=== PATIENT | female | born 1945 | race Caucasian/White ===

== ENCOUNTER 2023-04-08 18:11 | Inpatient (IN) | payer MEDICARE, OTHER ==
--- NOTE | 2023-04-08 19:01 | ED ---
General Adult HPI - General Chief complaint: Altered Mental Status Stated complaint: sob Time Seen by Provider: 04/08/23 18:18 Source: EMS Mode of arrival: EMS Limitations: altered mental status - History of Present Illness Initial comments: This patient is a 77-year-old woman transferred here to have evaluation for suspected aspiration. The patient was reportedly found coughing and there was 3 scattered about the patient. They were concerned she may have aspirated or vomited which she had been eating. The patient also had been coughing and pulse oximetry readings down to the 70s were obtained. The patient is not able to give any history here due to dementia/delirium. She did complain that the stethoscope felt cold. She was not answering any other questions. -: unknown - Related Data Home Medications Medication Instructions Recorded Confirmed Acetaminophen Tab [Tylenol] 1,000 mg PO Q4H PRN 04/08/23 04/08/23 Atorvastatin [Lipitor] 10 mg PO HS 04/08/23 04/08/23 Cholecalciferol [Vitamin D3 (25 50 mcg PO DAILY 04/08/23 04/08/23 Mcg = 1000 Iu)] Escitalopram [Lexapro] 20 mg PO DAILY 04/08/23 04/08/23 Healthshake 1 dose PO BID 04/08/23 04/08/23 Insulin Glargine [Lantus Vial] 8 unit SQ HS 04/08/23 04/08/23 Ipratropium-Albuterol Nebulize 3 ml INHALATION RT-Q6H PRN 04/08/23 04/08/23 [Duoneb 0.5 mg-3 mg/3 ml Soln] Multivitamins, Thera [Multivitamin 1 tab PO DAILY 04/08/23 04/08/23 (formulary)] Repaglinide [Prandin] 0.5 mg PO AC-SUPPER 04/08/23 04/08/23 Sennosides [Senokot] 17.2 mg PO Q12H PRN 04/08/23 04/08/23 busPIRone HCl [Buspar] 20 mg PO TID@0800,1200,1800 04/08/23 04/08/23 metFORMIN HCL [Glucophage] 1,000 mg PO HS 04/08/23 04/08/23 metFORMIN HCL [Glucophage] 500 mg PO DAILY 04/08/23 04/08/23 polyethylene glycoL 3350 [Miralax] 17 gm PO DAILY PRN 04/08/23 04/08/23 Previous Rx's Medication Instructions Recorded ALPRAZolam [Xanax] 0.5 mg PO BID@0800,2200 #6 tab 04/13/23 Midodrine [ProAmatine] 10 mg PO AC-TID #30 tab 04/13/23 Allergies Allergy/AdvReac Type Severity Reaction Status Date / Time No Known Allergies Allergy Unverified 04/08/23 19:19 Review of Systems ROS Statement: Those systems with pertinent positive or pertinent negative responses have been documented in the HPI. ROS Other: All systems not noted in ROS Statement are negative. Constitutional: Denies: fever Respiratory: Reports: as per HPI, cough, dyspnea Gastrointestinal: Reports: as per HPI Past Medical History Past Medical History: Dementia, Diabetes Mellitus History of Any Multi-Drug Resistant Organisms: None Reported Past Surgical History: No Surgical Hx Reported Past Psychological History: No Psychological Hx Reported Past Alcohol Use History: None Reported Past Drug Use History: None Reported - Past Family History Father History Unknown: Yes Family Medical History: Unable to Obtain General Exam Limitations: altered mental status General appearance: alert, in no apparent distress Head exam: Present: atraumatic, normocephalic Eye exam: Present: normal appearance. Absent: scleral icterus, conjunctival injection Respiratory exam: Present: rales (Bases bilaterally), rhonchi. Absent: respiratory distress, wheezes, accessory muscle use, decreased breath sounds Cardiovascular Exam: Present: regular rate, normal rhythm, normal heart sounds. Absent: systolic murmur, diastolic murmur, rubs, gallop GI/Abdominal exam: Present: soft. Absent: distended, tenderness, guarding, rebound, rigid, mass Extremities exam: Present: normal inspection, normal capillary refill. Absent: pedal edema, calf tenderness Back exam: Present: normal inspection. Absent: CVA tenderness (R), CVA tenderness (L) Neurological exam: Present: alert Skin exam: Present: warm, dry, intact, normal color. Absent: rash Course Vital Signs 04/08/23 04/08/23 04/08/23 18:14 19:19 22:40 Temperature 97.6 F 97.4 F L Pulse Rate 107 H 102 H 101 H Respiratory 20 20 20 Rate Blood Pressure 130/76 130/83 124/79 O2 Sat by Pulse 98 100 97 Oximetry 04/09/23 03:26 Temperature Pulse Rate 96 Respiratory 16 Rate Blood Pressure 117/80 O2 Sat by Pulse 95 Oximetry EKG Findings - EKG Results: EKG: interpreted by ERMD, sinus rhythm, normal axis EKG shows: tachycardia (106 bpm) - Blocks, [place], Hypertrophy, ST Abn: Repolarization changes or abnormalities: ST or T wave suggestive of ischemia Medical Decision Making - Medical Decision Making This patient is 77-year-old woman transferred here with concerns about dyspnea/low pulse oximetry readings and possibility of aspiration. Workup reveals what appears to be exacerbation of CHF. Patient will be admitted for further evaluation and treatment. Patient also appears to have some acute kidney injury based on the lab results. The patient had chest x-ray which I interpreted as showing changes consistent with CHF. No acute infiltrate or pneumothorax. Was pt. sent in by a medical professional or institution (, PA, CHIEF LENDING OFFICER, urgent care, hospital, or senior living...) When possible be specific @ -Patient is sent in from senior living Did you speak to anyone other than the patient for history (EMS, parent, family, police, friend...)? What history was obtained from this source @ -[No] Did you review nursing and triage notes (agree or disagree)? Why? @ -[I reviewed and agree with nursing and triage notes] Were old charts reviewed (outside hosp., previous admission, EMS record, old EKG, old radiological studies, urgent care reports/EKG's, senior living records)? Report findings @ -[Old charts were reviewed] Differential Diagnosis (chest pain, altered mental status, abdominal pain women, abdominal pain men, vaginal bleeding, weakness, fever, dyspnea, syncope, headache, dizziness, GI bleed, back pain, seizure, CVA, palpatations, mental health, musculoskeletal)? @ -[Differential Dyspnea: Coronary syndrome, arrhythmia, tamponade, asthma, COPD, pulmonary embolism, pneumonia, pneumothorax, pulmonary effusion, anaphylaxis, diabetic ketoacidosis, flailed chest, pulmonary contusion, diaphragmatic rupture, anemia, neuromuscular, this is not meant to be an all-inclusive list. EKG interpreted by me (3pts min.). @ -[As above] X-rays interpreted by me (1pt min.). @ -[As above CT interpreted by me (1pt min.). @ -[None done] U/S interpreted by me (1pt. min.). @ -[None done] What testing was considered but not performed or refused? (CT, X-rays, U/S, labs)? Why? @ -[None] What meds were considered but not given or refused? Why? @ -[None] Did you discuss the management of the patient with other professionals (professionals i.e. DrJanette, PA, CHIEF LENDING OFFICER, lab, RT, psych nurse, healthcare social worker, water quality analyst, teacher, deputy probation officer, classification case manager)? Give summary @ -[Mark discussed with admitting physician Was smoking cessation discussed for >3mins.? @ -[No] Was critical care preformed (if so, how long)? @ -[No] Were there social determinants of health that impacted care today? How? (Homelessness, low income, unemployed, alcoholism, drug addiction, tra nsportation, low edu. Level, literacy, decrease access to med. care, intermediate, rehab)? @ -[No] Was there de-escalation of care discussed even if they declined (Discuss DNR or withdrawal of care, Hospice)? DNR status @ -[No] What co-morbidities impacted this encounter? (DM, HTN, Smoking, COPD, CAD, Cancer, CVA, ARF, Chemo, Hep., AIDS, mental health diagnosis, sleep apnea, morbid obesity)? @ -[None] Was patient admitted / discharged? Hospital course, mention meds given and route, prescriptions, significant lab abnormalities, going to OR and other pertinent info. @ -[Patient will be admitted for diuretic therapy as well as for cardiology consultation and nephrology consultation. Undiagnosed new problem with uncertain prognosis? @ -[No] Drug Therapy requiring intensive monitoring for toxicity (Heparin, Nitro, Insulin, Cardizem)? @ -[No] Were any procedures done? @ -[No] Diagnosis/symptom? @ -[Acute exacerbation of congestive heart failure. Acute kidney injury Acute, or Chronic, or Acute on Chronic? @ -[default] Uncomplicated (without systemic symptoms) or Complicated (systemic symptoms)? @ -[Uncomplicated Side effects of treatment? @ -[No] Exacerbation, Progression, or Severe Exacerbation? @ -[No] Poses a threat to life or bodily function? How? (Chest pain, [place], GA, pneumonia, PE, COPD, DKA, ARF, appy, cholecystitis, CVA, Diverticulitis, Homicidal, Suicidal, threat to staff... and all critical care pts) @ -[Yes, untreated congestive heart failure may progress to pulmonary edema/respiratory failure/ - Lab Data Result diagrams: 04/13/23 16:47 04/14/23 07:49 Lab Results 04/08/23 04/08/23 04/08/23 Range/Units 19:37 19:37 19:37 WBC 16.7 H (3.8-10.6) k/uL RBC 4.53 (3.80-5.40) m/uL Hgb 13.4 (11.4-16.0) gm/dL Hct 42.7 (34.0-46.0) % MCV 94.3 (80.0-100.0) fL MCH 29.6 (25.0-35.0) pg MCHC 31.4 (31.0-37.0) g/dL RDW 13.5 (11.5-15.5) % Plt Count 422 (150-450) k/uL MPV 8.9 Neutrophils % 85 % Lymphocytes % 7 % Monocytes % 7 % Eosinophils % 0 % Basophils % 0 % Neutrophils # 14.1 H (1.3-7.7) k/uL Lymphocytes # 1.2 (1.0-4.8) k/uL Monocytes # 1.1 H (0-1.0) k/uL Eosinophils # 0.0 (0-0.7) k/uL Basophils # 0.0 (0-0.2) k/uL PT 11.2 (9.0-12.0) sec INR 1.1 (<1.2) APTT 22.8 (22.0-30.0) sec Sodium 142 (137-145) mmol/L Potassium 5.7 H (3.5-5.1) mmol/L Chloride 113 H (98-107) mmol/L Carbon Dioxide 16 L (22-30) mmol/L Anion Gap 13 mmol/L BUN 83 H (7-17) mg/dL Creatinine 2.62 H (0.52-1.04) mg/dL Est GFR (CKD-EPI)AfAm 20 (>60 ml/min/1.73 sqM) Est GFR (CKD-EPI)NonAf 17 (>60 ml/min/1.73 sqM) Glucose 295 H (74-99) mg/dL Lactic Ac Sepsis Rflx Plasma Lactic Acid Nick (0.7-2.0) mmol/L Calcium 9.1 (8.4-10.2) mg/dL Total Bilirubin 1.1 (0.2-1.3) mg/dL AST 23 (14-36) U/L ALT 15 (4-34) U/L Alkaline Phosphatase 103 (38-126) U/L Troponin I (0.000-0.034) ng/mL NT-Pro-B Natriuret Pep pg/mL Total Protein 6.4 (6.3-8.2) g/dL Albumin 3.5 (3.5-5.0) g/dL 04/08/23 04/08/23 04/08/23 Range/Units 19:37 19:37 19:37 WBC (3.8-10.6) k/uL RBC (3.80-5.40) m/uL Hgb (11.4-16.0) gm/dL Hct (34.0-46.0) % MCV (80.0-100.0) fL MCH (25.0-35.0) pg MCHC (31.0-37.0) g/dL RDW (11.5-15.5) % Plt Count (150-450) k/uL MPV Neutrophils % % Lymphocytes % % Monocytes % % Eosinophils % % Basophils % % Neutrophils # (1.3-7.7) k/uL Lymphocytes # (1.0-4.8) k/uL Monocytes # (0-1.0) k/uL Eosinophils # (0-0.7) k/uL Basophils # (0-0.2) k/uL PT (9.0-12.0) sec INR (<1.2) APTT (22.0-30.0) sec Sodium (137-145) mmol/L Potassium (3.5-5.1) mmol/L Chloride (98-107) mmol/L Carbon Dioxide (22-30) mmol/L Anion Gap mmol/L BUN (7-17) mg/dL Creatinine (0.52-1.04) mg/dL Est GFR (CKD-EPI)AfAm (>60 ml/min/1.73 sqM) Est GFR (CKD-EPI)NonAf (>60 ml/min/1.73 sqM) Glucose (74-99) mg/dL Lactic Ac Sepsis Rflx Plasma Lactic Acid Nick 2.5 H* (0.7-2.0) mmol/L Calcium (8.4-10.2) mg/dL Total Bilirubin (0.2-1.3) mg/dL AST (14-36) U/L ALT (4-34) U/L Alkaline Phosphatase (38-126) U/L Troponin I <0.012 (0.000-0.034) ng/mL NT-Pro-B Natriuret Pep 2180 pg/mL Total Protein (6.3-8.2) g/dL Albumin (3.5-5.0) g/dL 04/08/23 Range/Units 22:27 WBC (3.8-10.6) k/uL RBC (3.80-5.40) m/uL Hgb (11.4-16.0) gm/dL Hct (34.0-46.0) % MCV (80.0-100.0) fL MCH (25.0-35.0) pg MCHC (31.0-37.0) g/dL RDW (11.5-15.5) % Plt Count (150-450) k/uL MPV Neutrophils % % Lymphocytes % % Monocytes % % Eosinophils % % Basophils % % Neutrophils # (1.3-7.7) k/uL Lymphocytes # (1.0-4.8) k/uL Monocytes # (0-1.0) k/uL Eosinophils # (0-0.7) k/uL Basophils # (0-0.2) k/uL PT (9.0-12.0) sec INR (<1.2) APTT (22.0-30.0) sec Sodium (137-145) mmol/L Potassium (3.5-5.1) mmol/L Chloride (98-107) mmol/L Carbon Dioxide (22-30) mmol/L Anion Gap mmol/L BUN (7-17) mg/dL Creatinine (0.52-1.04) mg/dL Est GFR (CKD-EPI)AfAm (>60 ml/min/1.73 sqM) Est GFR (CKD-EPI)NonAf (>60 ml/min/1.73 sqM) Glucose (74-99) mg/dL Lactic Ac Sepsis Rflx Y Plasma Lactic Acid Nick (0.7-2.0) mmol/L Calcium (8.4-10.2) mg/dL Total Bilirubin (0.2-1.3) mg/dL AST (14-36) U/L ALT (4-34) U/L Alkaline Phosphatase (38-126) U/L Troponin I (0.000-0.034) ng/mL NT-Pro-B Natriuret Pep pg/mL Total Protein (6.3-8.2) g/dL Albumin (3.5-5.0) g/dL Disposition Clinical Impression: CHF exacerbation, Acute kidney injury Disposition: ADMITTED IP TO THIS HOSP Condition: Stable Is patient prescribed a controlled substance at d/c from ED?: No
--- NOTE | 2023-04-08 19:54 | XR ---
EXAMINATION TYPE: XR chest 2V DATE OF EXAM: 04/08/2023 7:49 PM COMPARISON: No relevant priors. TECHNIQUE: XR chest 2V . CLINICAL INDICATION:Female, 77 years old with history of difficulty breathing; Patient head positioning obscures visualization of the medial apices bilaterally. FINDINGS: Lungs/Pleura: Low lung volumes secondary to shallow inspiration. No focal airspace consolidation. Min imal subsegmental atelectatic changes of the lung bases bilaterally. Pulmonary vascularity: Mild pulmonary vascular congestion. Heart/mediastinum: Cardiomediastinal silhouette is enlarged. Musculoskeletal: Fixation hardware in the right humerus. Multilevel discogenic and degenerative bryan es of the visualized thoracic spine. IMPRESSION: Cardiomegaly and mild pulmonary vascular congestion. Correlate with BNP for congestive heart failure.
[2023-04-08 20:06] LABS: INR 1.1 (<1.2); Partial Thromboplastin Time 22.8 sec (22.0-30.0); Prothrombin Time 11.2 sec (9.0-12.0)
[2023-04-08 20:08] LABS: Basophils % (A) 0 %; Eosinophils % (A) 0 %; HCT 42.7 % (34.0-46.0); HGB 13.4 gm/dL (11.4-16.0); Lymphocytes # (A) 1.2 k/uL (1.0-4.8); Lymphocytes % (A) 7 %; MCH 29.6 pg (25.0-35.0); MCHC 31.4 g/dL (31.0-37.0); MCV 94.3 fL (80.0-100.0); Mean Platelet Volume 8.9; Monocytes # (A) 1.1 k/uL (0-1.0); Monocytes % (A) 7 %; Neutrophils # (A) 14.1 k/uL (1.3-7.7); Neutrophils % (A) 85 %; Platelet Count 422 k/uL (150-450); RBC 4.53 m/uL (3.80-5.40); RDW 13.5 % (11.5-15.5); WBC 16.7 k/uL (3.8-10.6)
[2023-04-08 20:15] LABS: ALT 15 U/L (4-34); AST 23 U/L (14-36); African American GFR (CKD) 20 (>60 ml/min/1.73 sqM); Albumin 3.5 g/dL (3.5-5.0); Alkaline Phosphatase 103 U/L (38-126); Anion Gap 13 mmol/L; Blood Urea Nitrogen 83 mg/dL (7-17); Calcium 9.1 mg/dL (8.4-10.2); Carbon Dioxide 16 mmol/L (22-30); Chloride 113 mmol/L (98-107); Glucose 295 mg/dL (74-99); Non-African American GFR(CKD) 17 (>60 ml/min/1.73 sqM); Potassium 5.7 mmol/L (3.5-5.1); Sodium 142 mmol/L (137-145); Total Bilirubin 1.1 mg/dL (0.2-1.3); Total Protein 6.4 g/dL (6.3-8.2)
[2023-04-08] MEDS ORDERED: FUROSEMIDE 10 MG/ML 2 ML VIAL IV STA (21:22)
[2023-04-09] MEDS ORDERED: FUROSEMIDE 10 MG/ML 4 ML VIAL IV SCH (02:30)
[2023-04-09] MEDS ORDERED: IPRATROPIUM-ALBUTEROL 3 ML NEB INHALATION PRN (02:30)
[2023-04-09] MEDS ORDERED: PROMETHAZINE 25 MG TAB PO STA (06:00)
[2023-04-09 06:05] LABS: Glucose,Whole Blood 254 mg/dL (70-110)
[2023-04-09] MEDS ORDERED: lisinopriL 10 MG TAB PO SCH (09:00)
[2023-04-09] MEDS ORDERED: metFORMIN 500 MG TAB PO SCH ×2 (09:00→21:00)
[2023-04-09] MEDS ORDERED: polyethylene glycoL 3350 17 GM POWD.PACK PO PRN (09:43)
[2023-04-09] MEDS ORDERED: SENNOSIDES 8.6 MG TAB PO PRN (09:43)
[2023-04-09 11:23] LABS: African American GFR (CKD) 20 (>60 ml/min/1.73 sqM); Anion Gap 14 mmol/L; Blood Urea Nitrogen 78 mg/dL (7-17); Calcium 9.4 mg/dL (8.4-10.2); Carbon Dioxide 19 mmol/L (22-30); Chloride 114 mmol/L (98-107); Glucose 240 mg/dL (74-99); Non-African American GFR(CKD) 18 (>60 ml/min/1.73 sqM); Potassium 4.8 mmol/L (3.5-5.1); Sodium 147 mmol/L (137-145)
--- NOTE | 2023-04-09 11:37 | US ---
EXAMINATION TYPE: US kidneys/renal and bladder DATE OF EXAM: 04/09/2023 COMPARISON: NONE CLINICAL INDICATION: Female, 77 years old with history of Bertrand; BERTRAND EXAM MEASUREMENTS: Right Kidney: 8.4 x 4.6 x 4.7 cm Left Kidney: 9.3 x 4.7 x 4.7 cm Right Kidney: Small in size, no evidence of hydro Left Kidney: No evidence of hydro Bladder: Cath in place Cortical medullary differentiation is maintained bilaterally. There is no evidence for hydronephrosis at this point in time. No nephrolithiasis is seen. No lakesha s are identified. Villa catheter in place. IMPRESSION: No evidence of obstructive uropathy.
[2023-04-09] MEDS: ALPRAZolam 0.5 MG TAB PO SCH ×2 (11:53→20:44)
[2023-04-09] MEDS: busPIRone HCl 10 MG TAB PO SCH ×3 (11:54→20:44)
[2023-04-09] MEDS: ESCITALOPRAM 20 MG TAB PO SCH (11:55)
[2023-04-09] MEDS: CHOLECALCIFEROL 25 MCG (1000 IU) TABLET PO SCH (11:55)
[2023-04-09 11:57] LABS: Glucose,Whole Blood 208 mg/dL (70-110)
--- NOTE | 2023-04-09 12:06 | P.NPCON ---
History of Present Illness - Reason for Consult acute renal failure - History of Present Illness Patient is a 77-year-old female who is admitted to the hospital with mental status changes. Patient has underlying history of dementia and type 2 diabetes and hypertension. She is not able to provide any history Serum creatinine was 2.6 on admission and decreased to 2.5. Prior creatinine was 0.8 Blood pressure has been borderline low. Patient was maintained on SOTO inhibitor's. Potassium was elevated at 5.7. Patient has an external catheter with urine output documented at 300 mL. Chest x-ray shows mild pulmonary vascular congestion O2 sats at 100% on 3 L nasal cannula. Review of Systems As per HPI Past Medical History Past Medical History: Dementia, Diabetes Mellitus History of Any Multi-Drug Resistant Organisms: None Reported Past Surgical History: No Surgical Hx Reported Past Psychological History: No Psychological Hx Reported Past Alcohol Use History: None Reported Past Drug Use History: None Reported Medications and Allergies Home Medications Medication Instructions Recorded Confirmed Type ALPRAZolam [Xanax] 0.5 mg PO BID@0800,2200 04/08/23 04/08/23 History Acetaminophen Tab [Tylenol Tab] 1,000 mg PO Q4H PRN 04/08/23 04/08/23 History Amoxic-Pot Clav 500-125 mg 1 tab PO TID@0700,1100,1800 04/08/23 04/08/23 History [Augmentin 500-125 mg] Atorvastatin [Lipitor] 10 mg PO HS 04/08/23 04/08/23 History Benazepril [Lotensin] 10 mg PO DAILY@0800 04/08/23 04/08/23 History Cholecalciferol [Vitamin D3 (25 50 mcg PO DAILY 04/08/23 04/08/23 History Mcg = 1000 Iu)] Escitalopram [Lexapro] 20 mg PO DAILY 04/08/23 04/08/23 History Healthshake 1 dose PO BID 04/08/23 04/08/23 History Insulin Glargine [Lantus Vial] 8 unit SQ HS 04/08/23 04/08/23 History Ipratropium-Albuterol Nebulize 3 ml INHALATION RT-Q6H PRN 04/08/23 04/08/23 History [Duoneb 0.5 mg-3 mg/3 ml Soln] Multivitamins, Thera [Multivitamin 1 tab PO DAILY 04/08/23 04/08/23 History (formulary)] Repaglinide [Prandin] 0.5 mg PO AC-SUPPER 04/08/23 04/08/23 History Sennosides [Senokot] 17.2 mg PO Q12H PRN 04/08/23 04/08/23 History busPIRone HCl [Buspar] 20 mg PO TID@0800,1200,1800 04/08/23 04/08/23 History metFORMIN HCL [Glucophage] 1,000 mg PO HS 04/08/23 04/08/23 History metFORMIN HCL [Glucophage] 500 mg PO DAILY 04/08/23 04/08/23 History polyethylene glycoL 3350 [Miralax] 17 gm PO DAILY PRN 04/08/23 04/08/23 History Allergies Allergy/AdvReac Type Severity Reaction Status Date / Time No Known Allergies Allergy Unverified 04/08/23 19:19 Physical Exam Vitals: Vital Signs Temp Pulse Pulse Resp BP BP Pulse Ox 04/09/23 04:13 98.8 F 94 24 109/71 100 04/09/23 03:26 96 16 117/80 95 04/08/23 22:40 97.4 F L 101 H 20 124/79 97 04/08/23 19:19 102 H 20 130/83 100 04/08/23 18:14 97.6 F 107 H 20 130/76 98 Intake and Output 04/08/23 04/09/23 04/09/23 22:59 06:59 14:59 Output Total 300 Balance -300 Output: Urine 300 Other: Voiding Method External Catheter Weight 68.039 kg Patient is awake, comfortable, in no acute distress. She does not communicate much. Examination of the heart S1 and S2 Examination of the lungs bilateral breath sounds are heard Abdomen is soft nontender Examination lower extremity shows no significant edema TRANSACTIONAL ATTORNEY exam shows patient is moving all 4 extremities however she does not communicate much. Results - Lab Results Most recent lab results Calcium 9.4 mg/dL (8.4-10.2) 04/09/23 10:27 04/08/23 19:37 04/09/23 10:27 Assessment and Plan Assessment: 1. Acute kidney injury most likely ATN currently nonoliguric. Mostly hemodynamic ATN associated with borderline low blood pressures in the setting of use of SOTO inhibitor's. Possible component of cardiorenal syndrome. Ultrasound shows no evidence of hydronephrosis. UA is not available 2. Hypernatremia associated with free water deficit 3. Mental status changes with underlying history of dementia 4. Mild volume overload on initial admission status post IV Lasix Plan: DC lisinopril DC Glucophage Hold Lasix for now Repeat labs in a.m. Continue accurate I's and O's Avoid any other nephrotoxic agents Encourage increased oral intake Repeat labs today Thank you for the consultation. We will continue to follow the patient with you during her hospitalization.
--- NOTE | 2023-04-09 12:21 | P.CRDCN ---
History of Present Illness Consult date: 04/09/23 Consult reason: congestive heart failure History of present illness: History of present illness: This is a 77 year old female with past medical history of hypertension, hyperlipidemia, diabetes mellitus type 2, generalized anxiety disorder, depr ession, dementia. Patient was brought into the emergency center due to suspected aspiration as she was apparently found coughing with food scattered around her and pulse ox was in the 70s. No history is able to be obtained from the patient.. EKG sinus rhythm with ST elevation in inferior leads Chest x-ray: Cardiomegaly and mild pulmonary vascular congestion. Renal ultrasound revealed no evidence of obstructive uropathy. WBC 16.7, hemoglobin 13.4, platelet count 422. Sodium 147, potassium 4.8, chloride 114, CO2 19, BUN 78 creatinine 2.56. Lactic acid 2. 5 repeat 1.2. Calcium 9.4. Liver function tests normal. Troponin negative 3. ProBNP 2180 Home cardiac medications: Atorvastatin 10 mg at bedtime, benazepril 10 mg daily Review Of Systems: At the time of my evaluation: Constitutional: No fever, no chills. No weakness, fatigue or lethargy. EENT: No headache. No dizziness. Lungs: No shortness of breath, cough, no sputum production. No wheezing. Cardiovascular: No chest pain, no lower extremity edema. No palpitations. No paroxysmal nocturnal dyspnea. No orthopnea. No lightheadedness or dizziness. No syncopal episodes. Abdominal: No abdominal pain. No nausea, vomiting. No diarrhea. No constipation. No bloody or tarry stools. Genitourinary: No dysuria.. No urinary retention. Musculoskeletal: No myalgias. No muscle weakness, no frequent falls. No back pain. No neck pain. Integumentary: No wounds. No rash. No unusual bruising. Neurologic: No aphasia. No facial droop. No change in mentation. No head injury. No headache. Physical examination: Gen: This is a 77-year-old female. She is resting in bed and appears to be in no acute distress. VS: reviewed. 109/71, heart rate in the 90s, pulse ox 100% on 3 L nasal cannula, afebrile. HEENT: Head is atraumatic, normocephalic. Pupils equal, round. Sclerae is anicteric. NECK: Supple. No JVD. . LUNGS: Diminished. No intercostal retractions. HEART: Regular rate and rhythm. ABDOMEN: Soft No tenderness. EXTREMITIES: No pedal edema. No calf tenderness. NEUROLOGICAL: Patient is sleeping and opens eyes only. Assessment: Metabolic encephalopathy Pneumonia Hyperkalemia Acute kidney injury Lactic acidosis Hypernatremia Possible mild heart failure on presentation Hypertension Hyperlipidemia Diabetes mellitus type 2 Dementia Plan: Patient is status post 1 dose of IV Lasix 20 mg Continue atorvastatin, hold benazepril due to acute kidney injury Obtain 2-D echocardiogram and Doppler study to assess cardiac structure and function Further recommendations to follow based upon clinical course Thank you kindly for this consultation. Nurse practitioner note has been reviewed, I agree with documented findings and plan of care. Patient was seen and examined. Past Medical History Past Medical History: Dementia, Diabetes Mellitus History of Any Multi-Drug Resistant Organisms: None Reported Past Surgical History: No Surgical Hx Reported Past Psychological History: No Psychological Hx Reported Past Alcohol Use History: None Reported Past Drug Use History: None Reported Medications and Allergies Home Medications Medication Instructions Recorded Confirmed Type ALPRAZolam [Xanax] 0.5 mg PO BID@0800,2200 04/08/23 04/08/23 History Acetaminophen Tab [Tylenol Tab] 1,000 mg PO Q4H PRN 04/08/23 04/08/23 History Amoxic-Pot Clav 500-125 mg 1 tab PO TID@0700,1100,1800 04/08/23 04/08/23 History [Augmentin 500-125 mg] Atorvastatin [Lipitor] 10 mg PO HS 04/08/23 04/08/23 History Benazepril [Lotensin] 10 mg PO DAILY@0800 04/08/23 04/08/23 History Cholecalciferol [Vitamin D3 (25 50 mcg PO DAILY 04/08/23 04/08/23 History Mcg = 1000 Iu)] Escitalopram [Lexapro] 20 mg PO DAILY 04/08/23 04/08/23 History Healthshake 1 dose PO BID 04/08/23 04/08/23 History Insulin Glargine [Lantus Vial] 8 unit SQ HS 04/08/23 04/08/23 History Ipratropium-Albuterol Nebulize 3 ml INHALATION RT-Q6H PRN 04/08/23 04/08/23 History [Duoneb 0.5 mg-3 mg/3 ml Soln] Multivitamins, Thera [Multivitamin 1 tab PO DAILY 04/08/23 04/08/23 History (formulary)] Repaglinide [Prandin] 0.5 mg PO AC-SUPPER 04/08/23 04/08/23 History Sennosides [Senokot] 17.2 mg PO Q12H PRN 04/08/23 04/08/23 History busPIRone HCl [Buspar] 20 mg PO TID@0800,1200,1800 04/08/23 04/08/23 History metFORMIN HCL [Glucophage] 1,000 mg PO HS 04/08/23 04/08/23 History metFORMIN HCL [Glucophage] 500 mg PO DAILY 04/08/23 04/08/23 History polyethylene glycoL 3350 [Miralax] 17 gm PO DAILY PRN 04/08/23 04/08/23 History Allergies Allergy/AdvReac Type Severity Reaction Status Date / Time No Known Allergies Allergy Unverified 04/08/23 19:19 Physical Exam Vitals: Vital Signs Temp Pulse Pulse Resp BP BP Pulse Ox 04/09/23 04:13 98.8 F 94 24 109/71 100 04/09/23 03:26 96 16 117/80 95 04/08/23 22:40 97.4 F L 101 H 20 124/79 97 04/08/23 19:19 102 H 20 130/83 100 04/08/23 18:14 97.6 F 107 H 20 130/76 98 Intake and Output 04/08/23 04/09/23 04/09/23 22:59 06:59 14:59 Other: Voiding Method External Catheter Weight 68.039 kg Results 04/08/23 19:37 04/09/23 10:27 Cardiac Enzymes 04/08/23 04/08/23 04/09/23 Range/Units 19:37 19:37 04:04 AST 23 (14-36) U/L Troponin I <0.012 0.020 (0.000-0.034) ng/mL 04/09/23 Range/Units 05:47 AST (14-36) U/L Troponin I 0.020 (0.000-0.034) ng/mL Coagulation 04/08/23 Range/Units 19:37 PT 11.2 (9.0-12.0) sec APTT 22.8 (22.0-30.0) sec CBC 04/08/23 Range/Units 19:37 WBC 16.7 H (3.8-10.6) k/uL RBC 4.53 (3.80-5.40) m/uL Hgb 13.4 (11.4-16.0) gm/dL Hct 42.7 (34.0-46.0) % Plt Count 422 (150-450) k/uL Comprehensive Metabolic Panel 04/08/23 Range/Units 19:37 Sodium 142 (137-145) mmol/L Potassium 5.7 H (3.5-5.1) mmol/L Chloride 113 H (98-107) mmol/L Carbon Dioxide 16 L (22-30) mmol/L BUN 83 H (7-17) mg/dL Creatinine 2.62 H (0.52-1.04) mg/dL Glucose 295 H (74-99) mg/dL Calcium 9.1 (8.4-10.2) mg/dL AST 23 (14-36) U/L ALT 15 (4-34) U/L Alkaline Phosphatase 103 (38-126) U/L Total Protein 6.4 (6.3-8.2) g/dL Albumin 3.5 (3.5-5.0) g/dL Current Medications Generic Name Dose Route Start Last Admin Trade Name Freq PRN Reason Stop Dose Admin Albuterol/Ipratropium 3 ml 04/09/23 02:30 Ipratropium-Albuterol 3 Ml Neb INHALATION RT-Q6H PRN Shortness Of Breath Or Wheezing Alprazolam 0.5 mg 04/09/23 08:00 Alprazolam 0.5 Mg Tab PO BID@0800,2200 [facility] Atorvastatin Calcium 10 mg 04/09/23 21:00 Atorvastatin 10 Mg Tab PO HS [facility] Buspirone HCl 20 mg 04/09/23 09:00 Buspirone Hcl 10 Mg Tab PO TID [facility] Cholecalciferol 50 mcg 04/09/23 09:00 Cholecalciferol 25 Mcg (1000 Iu) Tablet PO DAILY [facility] Escitalopram Oxalate 20 mg 04/09/23 09:00 Escitalopram 20 Mg Tab PO DAILY [facility] Furosemide 40 mg 04/09/23 02:30 04/09/23 02:45 Furosemide 10 Mg/Ml 4 Ml Vial IV 40 mg Q12H [facility] Administration Insulin Detemir 8 unit 04/09/23 21:00 Insulin Detemir (Levemir) 100 Unit/Ml Syr SQ HS [facility] Lisinopril 10 mg 04/09/23 09:00 Lisinopril 10 Mg Tab PO DAILY [facility] Metformin HCl 1,000 mg 04/09/23 21:00 Metformin 500 Mg Tab PO HS [facility] Metformin HCl 500 mg 04/09/23 09:00 Metformin 500 Mg Tab PO DAILY [facility] Repaglinide 0.5 mg 04/09/23 17:30 Repaglinide 1 Mg Tab PO AC-SUPPER [facility] Sodium Chloride 10 ml 04/09/23 09:00 Sodium Chloride 0.9% Flush 10 Ml Syringe IV BID [facility] Intake and Output 04/08/23 04/09/23 04/09/23 22:59 06:59 14:59 Other: Voiding Method External Catheter Weight 68.039 kg 04/08/23 19:37 04/08/23 19:37
[2023-04-09] MEDS: AMPICILLIN-SULBACTAM 3 GM in SODIUM CHLORIDE 0.9% 100 ML IVPB SCH ×2 (12:38→20:53)
--- NOTE | 2023-04-09 14:54 | P.HPIM ---
History of Present Illness H&P Date: 04/09/23 History of present illness; patient is a 77-year-old lady with past medical history significant for dementia who presented to the hospital because of shortness of breath. There was concern that patient might aspirated. Patient was found coughing. There was no fever or chills at that time. Patient initial pulse ox was down in 70s. Because of his concerns for aspiration, patient was brought to the ER. Initial lab work done in the ER showed sodium 142, potassium 5.7, BUN 83, creatinine 2.62, troponin 0.012, WBC 16.7, hemoglobin 13.4, Chest x-ray done showed cardiomegaly and mild pulmonary venous congestion She was admitted to internal medicine service for further evaluation and treatment REVIEW OF SYSTEMS: Review of systems cannot be obtained because of patient's history of dementia PHYSICAL EXAMINATION: GENERAL: The patient is alert to self, not in any acute distress. Well developed, well nourished. HEENT: Pupils are round and equally reacting to light. EOMI. No scleral icterus. No conjunctival pallor. Normocephalic, atraumatic. No pharyngeal erythema. No thyromegaly. CARDIOVASCULAR: S1 and S2 present. No murmurs, rubs, or gallops. PULMONARY: Coarse breath sounds bilaterally, expiratory rhonchi audible ABDOMEN: Soft, nontender, nondistended, normoactive bowel sounds. No palpable organomegaly. MUSCULOSKELETAL: No joint swelling or deformity. EXTREMITIES: No cyanosis, clubbing, or pedal edema. NEUROLOGICAL: Gross neurological examination did not reveal any focal deficits. SKIN: No rashes. Assessment and plan Acute CHF Acute hypoxic respiratory failure Aspiration pneumonia Hyperkalemia Acute kidney injury Hypertension Insulin-dependent diabetes mellitus History of dementia Monitor vital signs Monitor CBC Telemetry monitoring Strict I's and O's and daily weights DC lisinopril DC Glucophage Hold Lasix for now Continue IV Unasyn Monitor blood sugar levels, continue sliding scale insulin, resume home regimen of Lantus Consult cardiology Consult nephrology Past Medical History Past Medical History: Dementia, Diabetes Mellitus History of Any Multi-Drug Resistant Organisms: None Reported Past Surgical History: No Surgical Hx Reported Past Psychological History: No Psychological Hx Reported Past Alcohol Use History: None Reported Past Drug Use History: None Reported Medications and Allergies Home Medications Medication Instructions Recorded Confirmed Type ALPRAZolam [Xanax] 0.5 mg PO BID@0800,2200 04/08/23 04/08/23 History Acetaminophen Tab [Tylenol Tab] 1,000 mg PO Q4H PRN 04/08/23 04/08/23 History Amoxic-Pot Clav 500-125 mg 1 tab PO TID@0700,1100,1800 04/08/23 04/08/23 History [Augmentin 500-125 mg] Atorvastatin [Lipitor] 10 mg PO HS 04/08/23 04/08/23 History Benazepril [Lotensin] 10 mg PO DAILY@0800 04/08/23 04/08/23 History Cholecalciferol [Vitamin D3 (25 50 mcg PO DAILY 04/08/23 04/08/23 History Mcg = 1000 Iu)] Escitalopram [Lexapro] 20 mg PO DAILY 04/08/23 04/08/23 History Healthshake 1 dose PO BID 04/08/23 04/08/23 History Insulin Glargine [Lantus Vial] 8 unit SQ 04/08/23 04/08/23 History Ipratropium-Albuterol Nebulize 3 ml INHALATION RT-Q6H PRN 04/08/23 04/08/23 History [Duoneb 0.5 mg-3 mg/3 ml Soln] Multivitamins, Thera [Multivitamin 1 tab PO DAILY 04/08/23 04/08/23 History (formulary)] Repaglinide [Prandin] 0.5 mg PO AC-SUPPER 04/08/23 04/08/23 History Sennosides [Senokot] 17.2 mg PO Q12H PRN 04/08/23 04/08/23 History busPIRone HCl [Buspar] 20 mg PO TID@0800,1200,1800 04/08/23 04/08/23 History metFORMIN HCL [Glucophage] 1,000 mg PO HS 04/08/23 04/08/23 History metFORMIN HCL [Glucophage] 500 mg PO DAILY 04/08/23 04/08/23 History polyethylene glycoL 3350 [Miralax] 17 gm PO DAILY PRN 04/08/23 04/08/23 History Allergies Allergy/AdvReac Type Severity Reaction Status Date / Time No Known Allergies Allergy Unverified 04/08/23 19:19 Physical Exam Vitals: Vital Signs Temp Pulse Pulse Resp BP BP Pulse Ox 04/09/23 04:13 98.8 F 94 24 109/71 100 04/09/23 03:26 96 16 117/80 95 04/08/23 22:40 97.4 F L 101 H 20 124/79 97 04/08/23 19:19 102 H 20 130/83 100 04/08/23 18:14 97.6 F 107 H 20 130/76 98 Intake and Output 04/08/23 04/09/23 04/09/23 22:59 06:59 14:59 Output Total 300 Balance -300 Output: Urine 300 Other: Voiding Method External Catheter Weight 68.039 kg Results CBC & Chem 7: 04/08/23 19:37 04/09/23 10:27 Labs: Abnormal Lab Results - Last 24 Hours (Table) 04/08/23 04/08/23 04/08/23 Range/Units 19:37 19:37 19:37 WBC 16.7 H (3.8-10.6) k/uL Neutrophils # 14.1 H (1.3-7.7) k/uL Monocytes # 1.1 H (0-1.0) k/uL Potassium 5.7 H (3.5-5.1) mmol/L Chloride 113 H (98-107) mmol/L Carbon Dioxide 16 L (22-30) mmol/L BUN 83 H (7-17) mg/dL Creatinine 2.62 H (0.52-1.04) mg/dL Glucose 295 H (74-99) mg/dL POC Glucose (mg/dL) (70-110) mg/dL Plasma Lactic Acid Nick 2.5 H* (0.7-2.0) mmol/L 04/09/23 Range/Units 06:03 WBC (3.8-10.6) k/uL Neutrophils # (1.3-7.7) k/uL Monocytes # (0-1.0) k/uL Potassium (3.5-5.1) mmol/L Chloride (98-107) mmol/L Carbon Dioxide (22-30) mmol/L BUN (7-17) mg/dL Creatinine (0.52-1.04) mg/dL Glucose (74-99) mg/dL POC Glucose (mg/dL) 254 H (70-110) mg/dL Plasma Lactic Acid Nick (0.7-2.0) mmol/L
[2023-04-09 17:12] LABS: Glucose,Whole Blood 223 mg/dL (70-110)
[2023-04-09] MEDS: REPAGLINIDE 1 MG TAB PO SCH (18:28)
[2023-04-09 20:06] LABS: Glucose,Whole Blood 200 mg/dL (70-110)
[2023-04-09] MEDS: ATORVASTATIN 10 MG TAB PO SCH (20:43)
[2023-04-09] MEDS: INSULIN DETEMIR (LEVEMIR) 100 UNIT/ML SYR SQ SCH (20:52)
[2023-04-10 06:09] LABS: Glucose,Whole Blood 133 mg/dL (70-110)
[2023-04-10] MEDS ORDERED: FUROSEMIDE 10 MG/ML 4 ML VIAL IV SCH (09:00)
[2023-04-10] MEDS: AMPICILLIN-SULBACTAM 3 GM in SODIUM CHLORIDE 0.9% 100 ML IVPB SCH ×2 (09:10→19:57)
[2023-04-10 09:18] LABS: African American GFR (CKD) 24 (>60 ml/min/1.73 sqM); Non-African American GFR(CKD) 20 (>60 ml/min/1.73 sqM)
[2023-04-10] MEDS: ALPRAZolam 0.5 MG TAB PO SCH ×2 (09:22→19:56)
[2023-04-10] MEDS: MULTIVITAMINS, THERA 1 EACH TAB PO SCH (09:22)
[2023-04-10] MEDS: ESCITALOPRAM 20 MG TAB PO SCH (09:22)
[2023-04-10] MEDS: CHOLECALCIFEROL 25 MCG (1000 IU) TABLET PO SCH (09:22)
[2023-04-10] MEDS: busPIRone HCl 10 MG TAB PO SCH ×3 (09:22→19:56)
[2023-04-10 10:28] LABS: ALT 17 U/L (4-34); AST 27 U/L (14-36); Albumin 2.9 g/dL (3.5-5.0); Alkaline Phosphatase 96 U/L (38-126); Anion Gap 4 mmol/L; Blood Urea Nitrogen 81 mg/dL (7-17); Calcium 9.1 mg/dL (8.4-10.2); Carbon Dioxide 18 mmol/L (22-30); Chloride 120 mmol/L (98-107); Glucose 129 mg/dL (74-99); Potassium 4.6 mmol/L (3.5-5.1); Sodium 142 mmol/L (137-145); Total Bilirubin 0.8 mg/dL (0.2-1.3); Total Protein 5.9 g/dL (6.3-8.2)
[2023-04-10 11:31] LABS: Basophils % (A) 0 %; Eosinophils # (A) 0.2 k/uL (0-0.7); Eosinophils % (A) 2 %; HCT 40.7 % (34.0-46.0); HGB 12.6 gm/dL (11.4-16.0); Hypochromasia Slight; Lymphocytes # (A) 1.7 k/uL (1.0-4.8); Lymphocytes % (A) 14 %; MCH 30.1 pg (25.0-35.0); MCHC 30.8 g/dL (31.0-37.0); MCV 97.5 fL (80.0-100.0); Mean Platelet Volume 7.9; Monocytes # (A) 0.7 k/uL (0-1.0); Monocytes % (A) 6 %; Neutrophils # (A) 9.4 k/uL (1.3-7.7); Neutrophils % (A) 77 %; Platelet Count 313 k/uL (150-450); RBC 4.17 m/uL (3.80-5.40); RDW 13.5 % (11.5-15.5); WBC 12.1 k/uL (3.8-10.6)
[2023-04-10 11:47] LABS: Glucose,Whole Blood 143 mg/dL (70-110)
--- NOTE | 2023-04-10 12:40 | P.PN ---
Subjective Patient is a 77-year-old female who is admitted to the hospital with mental status changes. Patient has underlying history of dementia and type 2 diabetes and hypertension. She is not able to provide any history Serum creatinine was 2.6 on admission and decreased to 2.5. Prior creatinine was 0.8 Blood pressure has been borderline low. Patient was maintained on SOOT inhibitor's. Potassium was elevated at 5.7. Patient has an external catheter with urine output documented at 300 mL. Chest x-ray shows mild pulmonary vascular congestion Status post IV Lasix. Currently not on any IV fluids or diuretics Serum creatinine 2.2 today. No evidence of obstruction on ultrasound. Objective - Vital Signs Vital signs: Vital Signs Temp 99.0 F 04/10/23 09:16 Pulse 79 04/10/23 11:28 Resp 15 04/10/23 11:28 BP 100/70 04/10/23 11:28 Pulse Ox 100 04/10/23 11:28 FiO2 Intake & Output 04/09/23 04/10/23 04/10/23 18:59 06:59 18:59 Intake Total 10 10 Output Total 700 200 Balance -700 -190 10 Weight 68.039 kg 70 kg Intake: IV 10 10 Invasive Line 1 10 10 Oral 0 Output: Urine 700 200 Other: Voiding Method External Catheter External Catheter External Catheter # Bowel Movements 0 - Exam Patient is awake, comfortable, in no acute distress. She does not communicate much. Examination of the heart S1 and S2 Examination of the lungs bilateral breath sounds are heard Abdomen is soft nontender Examination lower extremity shows no significant edema REGISTRATION SPECIALIST exam shows patient is moving all 4 extremities however she does not communicate much. - Labs CBC & Chem 7: 04/10/23 10:44 04/10/23 07:59 Labs: Abnormal Lab Results - Last 24 Hours (Table) 04/09/23 04/09/23 04/10/23 Range/Units 17:09 20:02 06:07 WBC (3.8-10.6) k/uL MCHC (31.0-37.0) g/dL Neutrophils # (1.3-7.7) k/uL Chloride (98-107) mmol/L Carbon Dioxide (22-30) mmol/L BUN (7-17) mg/dL Creatinine (0.52-1.04) mg/dL Glucose (74-99) mg/dL POC Glucose (mg/dL) 223 H 200 H 133 H (70-110) mg/dL Total Protein (6.3-8.2) g/dL Albumin (3.5-5.0) g/dL 04/10/23 04/10/23 04/10/23 Range/Units 07:59 10:44 11:45 WBC 12.1 H (3.8-10.6) k/uL MCHC 30.8 L (31.0-37.0) g/dL Neutrophils # 9.4 H (1.3-7.7) k/uL Chloride 120 H (98-107) mmol/L Carbon Dioxide 18 L (22-30) mmol/L BUN 81 H (7-17) mg/dL Creatinine 2.25 H (0.52-1.04) mg/dL Glucose 129 H (74-99) mg/dL POC Glucose (mg/dL) 143 H (70-110) mg/dL Total Protein 5.9 L (6.3-8.2) g/dL Albumin 2.9 L (3.5-5.0) g/dL Assessment and Plan Assessment: 1. Acute kidney injury most likely ATN currently nonoliguric. Mostly hemodynamic ATN associated with borderline low blood pressures in the setting of use of SOTO inhibitor's. Possible component of cardiorenal syndrome. Ultrasound shows no evidence of hydronephrosis. UA is not available. Blood pressure remains low and therefore I will add midodrine. Check cortisol 2. Hypernatremia associated with free water deficit 3. Mental status changes with underlying history of dementia 4. Mild volume overload on initial admission status post IV Lasix 5. Non-gap metabolic acidosis associated with acute kidney injury, improved. Add sodium bicarb if not further improved by tomorrow Plan: Continue off of SOTO inhibitor's and metformin Add midodrine Check random cortisol level Repeat labs in a.m. Add sodium bicarb if patient remains acidotic
--- NOTE | 2023-04-10 12:53 | P.PN ---
Subjective Progress Note Date: 04/10/23 History of present illness: This is a 77 year old female with past medical history of hypertension, hyperl ipidemia, diabetes mellitus type 2, generalized anxiety disorder, depression, dementia. Patient was brought into the emergency center due to suspected aspiration as she was apparently found coughing with food scattered around her and pulse ox was in the 70s. No history is able to be obtained from the patient.. EKG sinus rhythm with ST elevation in inferior leads Chest x-ray: Cardiomegaly and mild pulmonary vascular congestion. Renal ultrasound revealed no evidence of obstructive uropathy. WBC 16.7, hemoglobin 13.4, platelet count 422. Sodium 147, potassium 4.8, chloride 114, CO2 19, BUN 78 creatinine 2.56. Lactic acid 2. 5 repeat 1.2. Calcium 9.4. Liver function tests normal. Troponin negative 3. ProBNP 2180 Home cardiac medications: Atorvastatin 10 mg at bedtime, benazepril 10 mg daily 04/10 Patient is seen today in follow-up. Patient is unable to verbalize her concerns. She appears to be comfortable at rest. No respiratory distress noted. Blood pressure has been marginal currently at 100/70, heart rate in the 70s to 90. Pulse ox 100% on 2 L nasal cannula. Repeat blood work reveals WBC 12.1, hemoglobin 12.6. BUN 81 creatinine 2.25. Chloride is 120 and CO2 is 18. Echocardiogram reveals Physical examination: Gen: This is a 77-year-old female. She is resting in bed and appears to be in no acute distress. VS: reviewed. HEENT: Head is atraumatic, normocephalic. Pupils equal, round. Sclerae is anicteric. NECK: Supple. No JVD. . LUNGS: Diminished. No intercostal retractions. HEART: Regular rate and rhythm. ABDOMEN: Soft No tenderness. EXTREMITIES: No pedal edema. No calf tenderness. NEUROLOGICAL: Patient is sleeping and opens eyes only. Assessment: Metabolic encephalopathy Pneumonia Hyperkalemia Acute kidney injury Lactic acidosis Hypernatremia Possible mild heart failure on presentation Hypertension Hyperlipidemia Diabetes mellitus type 2 Dementia Plan: Continue atorvastatin, hold benazepril due to acute kidney injury Continue medical management. No plan for any further cardiac workup. Cardiology will sign off and follow on an as-needed basis. Please reconsult if there are any new concerns. Nurse practitioner note has been reviewed, I agree with documented findings and plan of care. Patient was seen and examined. Objective - Vital Signs Vital signs: Vital Signs Temp 99.0 F 04/10/23 09:16 Pulse 87 04/10/23 09:16 Resp 17 04/10/23 09:16 BP 78/61 04/10/23 09:16 Pulse Ox 100 04/10/23 09:16 FiO2 Intake & Output 04/09/23 04/10/23 04/10/23 18:59 06:59 18:59 Intake Total 10 10 Output Total 700 200 Balance -700 -190 10 Weight 68.039 kg 70 kg Intake: IV 10 10 Invasive Line 1 10 10 Output: Urine 700 200 Other: Voiding Method External Catheter External Catheter - Labs CBC & Chem 7: 04/10/23 10:44 04/10/23 07:59 Labs: Abnormal Lab Results - Last 24 Hours (Table) 04/09/23 04/09/23 04/09/23 Range/Units 10:27 11:56 17:09 Sodium 147 H (137-145) mmol/L Chloride 114 H (98-107) mmol/L Carbon Dioxide 19 L (22-30) mmol/L BUN 78 H (7-17) mg/dL Creatinine 2.56 H (0.52-1.04) mg/dL Glucose 240 H (74-99) mg/dL POC Glucose (mg/dL) 208 H 223 H (70-110) mg/dL 04/09/23 04/10/23 04/10/23 Range/Units 20:02 06:07 07:59 Sodium (137-145) mmol/L Chloride (98-107) mmol/L Carbon Dioxide (22-30) mmol/L BUN (7-17) mg/dL Creatinine 2.25 H (0.52-1.04) mg/dL Glucose (74-99) mg/dL POC Glucose (mg/dL) 200 H 133 H (70-110) mg/dL
--- NOTE | 2023-04-10 13:14 | P.PN ---
Subjective Progress Note Date: 04/10/23 patient is a 77-year-old lady with past medical history significant for dementia who presented to the hospital because of shortness of breath. There was concern that patient might aspirated. Patient was found coughing. There was no fever or chills at that time. Patient initial pulse ox was down in 70s. Because of his concerns for aspiration, patient was brought to the ER. Initial lab work done in the ER showed sodium 142, potassium 5.7, BUN 83, creatinine 2.62, troponin 0.012, WBC 16.7, hemoglobin 13.4, Chest x-ray done showed cardiomegaly and mild pulmonary venous congestion She was admitted to internal medicine service for further evaluation and treatment 04/10. Patient seen and examined. Vital signs this morning are temperature 98.6, heart rate 90, blood pressure 90/61, on 3 L of oxygen. Pressure is on the softer side REVIEW OF SYSTEMS: Review of systems cannot be obtained because the patient history of dementia PHYSICAL EXAMINATION: GENERAL: The patient is alert to self, not in any acute distress. Well developed, well nourished. HEENT: Pupils are round and equally reacting to light. EOMI. No scleral icterus. No conjunctival pallor. Normocephalic, atraumatic. No pharyngeal erythema. No thyromegaly. CARDIOVASCULAR: S1 and S2 present. No murmurs, rubs, or gallops. PULMONARY: Chest is clear to auscultation, no wheezing or crackles. ABDOMEN: Soft, nontender, nondistended, normoactive bowel sounds. No palpable organomegaly. MUSCULOSKELETAL: No joint swelling or deformity. EXTREMITIES: No cyanosis, clubbing, or pedal edema. NEUROLOGICAL: Gross neurological examination did not reveal any focal deficits. SKIN: No rashes. Assessment and plan Acute CHF Acute hypoxic respiratory failure Aspiration pneumonia Hyperkalemia Acute kidney injury Hypertension Insulin-dependent diabetes mellitus History of dementia Monitor vital signs Monitor CBC Monitor CMP Continue telemetry monitoring Results of ultrasound of the kidneys noted, no evidence of any obstruction. Hold nephrotoxic agent Added midodrine Follow-up on 2-D echo Continue IV Unasyn Follow-up in nephrology recommendations Follow-up on cardiology recommendations Objective - Vital Signs Vital signs: Vital Signs Temp 98.6 F 04/10/23 04:00 Pulse 90 04/10/23 04:00 Resp 20 04/10/23 04:00 BP 90/61 04/10/23 04:00 Pulse Ox 99 04/10/23 04:00 FiO2 Intake & Output 04/09/23 04/10/23 04/10/23 18:59 06:59 18:59 Intake Total 10 Output Total 700 200 Balance -700 -190 Weight 68.039 kg 70 kg Intake: IV 10 Invasive Line 1 10 Output: Urine 700 200 Other: Voiding Method External Catheter External Catheter - Labs CBC & Chem 7: 04/10/23 10:44 04/10/23 07:59 Labs: Abnormal Lab Results - Last 24 Hours (Table) 04/09/23 04/09/23 04/09/23 Range/Units 10:27 11:56 17:09 Sodium 147 H (137-145) mmol/L Chloride 114 H (98-107) mmol/L Carbon Dioxide 19 L (22-30) mmol/L BUN 78 H (7-17) mg/dL Creatinine 2.56 H (0.52-1.04) mg/dL Glucose 240 H (74-99) mg/dL POC Glucose (mg/dL) 208 H 223 H (70-110) mg/dL 04/09/23 04/10/23 Range/Units 20:02 06:07 Sodium (137-145) mmol/L Chloride (98-107) mmol/L Carbon Dioxide (22-30) mmol/L BUN (7-17) mg/dL Creatinine (0.52-1.04) mg/dL Glucose (74-99) mg/dL POC Glucose (mg/dL) 200 H 133 H (70-110) mg/dL
--- NOTE | 2023-04-10 13:33 | CA ---
Transthoracic Echo Report Name: Tavia Handley Age: 77 Gender: F : 1945 Exam Date: 04/10/2023 08:06 Exam Location: [facility] Ht (in): 62 Wt (lb): 154 Ordering Physician: Marietta Huffman Attending/Referring Phys: [id number], Armida Wash Plant Operator Tiffanie Lazaro RDCS Procedure CPT: Indications: LVF Cardiac Hx: Technical Quality: Fair Contrast 1: Total Dose (mL): Contrast 2: Total Dose (mL): MEASUREMENTS (Male / Female) Normal Values 2D ECHO LV Diastolic Diameter PLAX 3.8 cm 4.2 - 5.9 / 3.9 - 5.3 cm LV Systolic Diameter PLAX 2.7 cm IVS Diastolic Thickness 0.9 cm 0.6 - 1.0 / 0.6 - 0.9 cm LVPW Diastolic Thickness 1.0 cm 0.6 - 1.0 / 0.6 - 0.9 cm LV Relative Wall Thickness 0.5 RV Internal Dim ED PLAX 2.6 cm LVOT Diameter 2.3 cm LA Systolic Diameter LX 3.1 cm 3.0 - 4.0 / 2.7 - 3.8 cm LV Diastolic Volume MOD 4C 32.4 cm??? LV Systolic Volume MOD 4C 18.7 cm??? LV Ejection Fraction MOD 4C 42.1 % LV Cardiac Index MOD 4C 639.7 cm???/min???m??? LV Diastolic Length 4C 6.0 cm LV Systolic Length 4C 5.4 cm LV Diastolic Volume MOD 2C 32.2 cm??? LV Systolic Volume MOD 2C 14.5 cm??? LV Ejection Fraction MOD 2C 55.1 % LV Cardiac Index MOD 2C 831.3 cm???/min???m??? LV Diastolic Length 2C 6.3 cm LV Systolic Length 2C 6.0 cm M-MODE Aortic Root Diameter MM 2.9 cm AV Cusp Separation MM 1.9 cm DOPPLER AV Peak Velocity 265.4 cm/s AV Peak Gradient 28.2 mmHg AV Mean Velocity 198.0 cm/s AV Mean Gradient 17.7 mmHg AV Velocity Time Integral 49.5 cm LVOT Peak Velocity 80.2 cm/s LVOT Peak Gradient 2.6 mmHg AV Area Cont Eq pk 1.3 cm??? MV Area PHT 3.0 cm??? Mitral E Point Velocity 77.7 cm/s Mitral A Point Velocity 83.6 cm/s Mitral E to A Ratio 0.9 MV Deceleration Time 252.3 ms TR Peak Velocity 230.2 cm/s TR Peak Gradient 21.2 mmHg Right Ventricular Systolic Press 26.2 mmHg FINDINGS Left Ventricle Left ventricular ejection fraction is estimated at 50-55 %. Small left ventricular cavity. Mildly increased posterior wall thickness. Right Ventricle Normal right ventricular size and function. Right ventricular systolic pressure within normal limits. Right Atrium Normal right atrial size. Left Atrium Normal left atrial size. Mitral Valve Structurally normal mitral valve. No mitral stenosis, regurgitation or prolapse. Aortic Valve Aortic valve sclerosis. Mild aortic stenosis with a peak gradient of 28 mmHg and a mean gradient of 18 mmHg. Tricuspid Valve Structurally normal tricuspid valve. Mild tricuspid regurgitation. Pulmonic Valve Pulmonic valve not well visualized. Pericardium Normal pericardium. No pericardial effusion. Aorta Normal size aortic root and proximal ascending aorta. CONCLUSIONS Left ventricular ejection fraction 5055% Mildly increased left ventricular wall thickness Mild aortic stenosis Mild tricuspid regurgitation No pericardial effusion Previewed by: Dr. Aníbal Ochoa DO (Electronically Signed) Final Date: 10 April 2023 13:32
[2023-04-10 16:28] LABS: Glucose,Whole Blood 124 mg/dL (70-110)
[2023-04-10] MEDS: MIDODRINE 5 MG TAB PO SCH (17:21)
[2023-04-10] MEDS: REPAGLINIDE 1 MG TAB PO SCH (17:21)
[2023-04-10] MEDS: ATORVASTATIN 10 MG TAB PO SCH (19:57)
[2023-04-10 20:05] LABS: Glucose,Whole Blood 154 mg/dL (70-110)
[2023-04-10] MEDS: INSULIN DETEMIR (LEVEMIR) 100 UNIT/ML SYR SQ SCH (20:44)
[2023-04-11] MEDS: MIDODRINE 5 MG TAB PO SCH ×3 (05:53→16:28)
[2023-04-11 06:00] LABS: Glucose,Whole Blood 106 mg/dL (70-110)
[2023-04-11 07:53] LABS: Basophils # (A) 0.1 k/uL (0-0.2); Basophils % (A) 1 %; Eosinophils # (A) 0.5 k/uL (0-0.7); Eosinophils % (A) 5 %; HCT 41.8 % (34.0-46.0); HGB 12.7 gm/dL (11.4-16.0); Hypochromasia Marked; Lymphocytes % (A) 21 %; MCH 30.4 pg (25.0-35.0); MCHC 30.5 g/dL (31.0-37.0); MCV 99.8 fL (80.0-100.0); Mean Platelet Volume 7.8; Monocytes # (A) 0.5 k/uL (0-1.0); Monocytes % (A) 5 %; Neutrophils # (A) 6.2 k/uL (1.3-7.7); Neutrophils % (A) 67 %; Platelet Count 313 k/uL (150-450); RBC 4.18 m/uL (3.80-5.40); RDW 13.5 % (11.5-15.5); WBC 9.3 k/uL (3.8-10.6)
[2023-04-11 08:26] LABS: ALT 23 U/L (4-34); AST 32 U/L (14-36); African American GFR (CKD) 20 (>60 ml/min/1.73 sqM); Albumin 2.9 g/dL (3.5-5.0); Alkaline Phosphatase 88 U/L (38-126); Anion Gap 9 mmol/L; Blood Urea Nitrogen 90 mg/dL (7-17); Calcium 8.8 mg/dL (8.4-10.2); Carbon Dioxide 22 mmol/L (22-30); Chloride 121 mmol/L (98-107); Glucose 121 mg/dL (74-99); Non-African American GFR(CKD) 17 (>60 ml/min/1.73 sqM); Sodium 152 mmol/L (137-145); Total Bilirubin 0.8 mg/dL (0.2-1.3); Total Protein 5.9 g/dL (6.3-8.2)
[2023-04-11] MEDS: AMPICILLIN-SULBACTAM 3 GM in SODIUM CHLORIDE 0.9% 100 ML IVPB SCH ×2 (09:22→20:38)
[2023-04-11] MEDS: ALPRAZolam 0.5 MG TAB PO SCH ×2 (09:24→20:39)
[2023-04-11] MEDS: CHOLECALCIFEROL 25 MCG (1000 IU) TABLET PO SCH (09:24)
[2023-04-11] MEDS: MULTIVITAMINS, THERA 1 EACH TAB PO SCH (09:24)
[2023-04-11] MEDS: busPIRone HCl 10 MG TAB PO SCH ×3 (09:24→20:39)
[2023-04-11] MEDS: ESCITALOPRAM 20 MG TAB PO SCH (09:24)
--- NOTE | 2023-04-11 10:12 | P.PN ---
Subjective Patient is seen in follow-up for acute kidney injury. Renal function little worse today. Sodium level up to 152. Oral intake is poor. Pressure on the lower side. On midodrine. Vital signs are stable. General: No acute distress. HEENT: Head exam is unremarkable. LUNGS: No acute rhonchi or wheezes. HEART: Rate and Rhythm are regular. ABDOMEN: Nontender. EXTREMITITES: No edema. Objective - Vital Signs Vital signs: Vital Signs Temp 98.0 F 04/11/23 09:21 Pulse 59 L 04/11/23 09:21 Resp 16 04/11/23 09:21 BP 94/67 04/11/23 09:21 Pulse Ox 99 04/11/23 09:21 FiO2 Intake & Output 04/10/23 04/11/23 04/11/23 18:59 06:59 18:59 Intake Total 20 20 10 Output Total 250 250 Balance -230 -230 10 Weight 70 kg Intake: IV 20 20 10 Invasive Line 1 20 20 10 Oral 0 0 Output: Urine 250 250 Other: Voiding Method External Catheter External Catheter External Catheter # Bowel Movements 1 - Labs CBC & Chem 7: 04/11/23 07:40 04/11/23 07:40 Labs: Abnormal Lab Results - Last 24 Hours (Table) 04/10/23 04/10/23 04/10/23 Range/Units 07:59 10:44 11:45 WBC 12.1 H (3.8-10.6) k/uL MCHC 30.8 L (31.0-37.0) g/dL Neutrophils # 9.4 H (1.3-7.7) k/uL Sodium (137-145) mmol/L Chloride 120 H (98-107) mmol/L Carbon Dioxide 18 L (22-30) mmol/L BUN 81 H (7-17) mg/dL Creatinine 2.25 H (0.52-1.04) mg/dL Glucose 129 H (74-99) mg/dL POC Glucose (mg/dL) 143 H (70-110) mg/dL Total Protein 5.9 L (6.3-8.2) g/dL Albumin 2.9 L (3.5-5.0) g/dL 04/10/23 04/10/23 04/11/23 Range/Units 16:26 19:56 07:40 WBC (3.8-10.6) k/uL MCHC 30.5 L (31.0-37.0) g/dL Neutrophils # (1.3-7.7) k/uL Sodium (137-145) mmol/L Chloride (98-107) mmol/L Carbon Dioxide (22-30) mmol/L BUN (7-17) mg/dL Creatinine (0.52-1.04) mg/dL Glucose (74-99) mg/dL POC Glucose (mg/dL) 124 H 154 H (70-110) mg/dL Total Protein (6.3-8.2) g/dL Albumin (3.5-5.0) g/dL 04/11/23 Range/Units 07:40 WBC (3.8-10.6) k/uL MCHC (31.0-37.0) g/dL Neutrophils # (1.3-7.7) k/uL Sodium 152 H (137-145) mmol/L Chloride 121 H (98-107) mmol/L Carbon Dioxide (22-30) mmol/L BUN 90 H (7-17) mg/dL Creatinine 2.57 H (0.52-1.04) mg/dL Glucose 121 H (74-99) mg/dL POC Glucose (mg/dL) (70-110) mg/dL Total Protein 5.9 L (6.3-8.2) g/dL Albumin 2.9 L (3.5-5.0) g/dL Assessment and Plan Plan: Assessment: 1. Acute kidney injury secondary to hemodynamic ATN, further worsened with the use of SOTO inhibitor. No hydronephrosis noted on kidney ultrasound. Right kidney atrophic. Creatinine 2.57 today. Creatinine 0.8 in February 2022. 2. Hypernatremia from lack of oral water intake. 3. Metabolic acidosis secondary to acute kidney injury. Improved. 4. Acute on chronic diastolic CHF. 5. Diabetes mellitus. 6. History of dementia. Plan: Start D5W at 100 mL an hour. Check chest x-ray. Check UA. Avoid nephrotoxins. Continue to monitor renal function and urine output. Repeat sodium level this evening. Continue to hold metformin. Cortisol level not low. Maintain midodrine.
[2023-04-11] MEDS: DEXTROSE 5% IN WATER 1,000 ML IV SCH ×2 (10:32→20:39)
[2023-04-11 11:33] LABS: Glucose,Whole Blood 165 mg/dL (70-110)
--- NOTE | 2023-04-11 13:00 | P.PN ---
Subjective Progress Note Date: 04/11/23 patient is a 77-year-old lady with past medical history significant for dementia who presented to the hospital because of shortness of breath. There was concern that patient might aspirated. Patient was found coughing. There was no fever or chills at that time. Patient initial pulse ox was down in 70s. Because of his concerns for aspiration, patient was brought to the ER. Initial lab work done in the ER showed sodium 142, potassium 5.7, BUN 83, creatinine 2.62, troponin 0.012, WBC 16.7, hemoglobin 13.4, Chest x-ray done showed cardiomegaly and mild pulmonary venous congestion She was admitted to internal medicine service for further evaluation and treatment 04/10. Patient seen and examined. Vital signs this morning are temperature 98.6, heart rate 90, blood pressure 90/61, on 3 L of oxygen. Pressure is on the softer side 04/11. Patient seen and examined. Labs done this morning showed white count 9.3, hemoglobin 12.7, sodium 150, potassium 5, chloride 121, creatinine 2.57 REVIEW OF SYSTEMS: Review of systems cannot be obtained because the patient history of dementia PHYSICAL EXAMINATION: GENERAL: The patient is alert to self, not in any acute distress. Well developed, well nourished. HEENT: Pupils are round and equally reacting to light. EOMI. No scleral icterus. No conjunctival pallor. Normocephalic, atraumatic. No pharyngeal erythema. No thyromegaly. CARDIOVASCULAR: S1 and S2 present. No murmurs, rubs, or gallops. PULMONARY: Chest is clear to auscultation, no wheezing or crackles. ABDOMEN: Soft, nontender, nondistended, normoactive bowel sounds. No palpable organomegaly. MUSCULOSKELETAL: No joint swelling or deformity. EXTREMITIES: No cyanosis, clubbing, or pedal edema. NEUROLOGICAL: Gross neurological examination did not reveal any focal deficits. SKIN: No rashes. Assessment and plan Acute CHF Acute hypoxic respiratory failure Aspiration pneumonia Hyperkalemia Hypernatremia Acute kidney injury Hypertension Insulin-dependent diabetes mellitus History of dementia Monitor vital signs Monitor CBC Monitor CMP, sodium elevated, encourage oral hydration Continue telemetry monitoring Results of ultrasound of the kidneys noted, no evidence of any obstruction. Hold nephrotoxic agent Continue midodrine 2-D echo showed LVEF of 55%, small left ventricular cavity, mild aortic stenosis, mild tricuspid regurg Continue IV Unasyn Started on D5W at 100 mL per hour Follow-up in nephrology recommendations Follow-up on cardiology recommendations Objective - Vital Signs Vital signs: Vital Signs Temp 98.0 F 04/11/23 09:21 Pulse 59 L 04/11/23 09:21 Resp 16 04/11/23 09:21 BP 94/67 04/11/23 09:21 Pulse Ox 99 04/11/23 09:21 FiO2 Intake & Output 04/10/23 04/11/23 04/11/23 18:59 06:59 18:59 Intake Total 20 20 10 Output Total 250 250 Balance -230 -230 10 Weight 70 kg Intake: IV 20 20 10 Invasive Line 1 20 20 10 Oral 0 0 Output: Urine 250 250 Other: Voiding Method External Catheter External Catheter External Catheter # Bowel Movements 1 - Labs CBC & Chem 7: 04/11/23 07:40 04/11/23 07:40 Labs: Abnormal Lab Results - Last 24 Hours (Table) 04/10/23 04/10/23 04/10/23 Range/Units 07:59 10:44 11:45 WBC 12.1 H (3.8-10.6) k/uL MCHC 30.8 L (31.0-37.0) g/dL Neutrophils # 9.4 H (1.3-7.7) k/uL Sodium (137-145) mmol/L Chloride 120 H (98-107) mmol/L Carbon Dioxide 18 L (22-30) mmol/L BUN 81 H (7-17) mg/dL Creatinine 2.25 H (0.52-1.04) mg/dL Glucose 129 H (74-99) mg/dL POC Glucose (mg/dL) 143 H (70-110) mg/dL Total Protein 5.9 L (6.3-8.2) g/dL Albumin 2.9 L (3.5-5.0) g/dL 04/10/23 04/10/23 04/11/23 Range/Units 16:26 19:56 07:40 WBC (3.8-10.6) k/uL MCHC 30.5 L (31.0-37.0) g/dL Neutrophils # (1.3-7.7) k/uL Sodium (137-145) mmol/L Chloride (98-107) mmol/L Carbon Dioxide (22-30) mmol/L BUN (7-17) mg/dL Creatinine (0.52-1.04) mg/dL Glucose (74-99) mg/dL POC Glucose (mg/dL) 124 H 154 H (70-110) mg/dL Total Protein (6.3-8.2) g/dL Albumin (3.5-5.0) g/dL 04/11/23 Range/Units 07:40 WBC (3.8-10.6) k/uL MCHC (31.0-37.0) g/dL Neutrophils # (1.3-7.7) k/uL Sodium 152 H (137-145) mmol/L Chloride 121 H (98-107) mmol/L Carbon Dioxide (22-30) mmol/L BUN 90 H (7-17) mg/dL Creatinine 2.57 H (0.52-1.04) mg/dL Glucose 121 H (74-99) mg/dL POC Glucose (mg/dL) (70-110) mg/dL Total Protein 5.9 L (6.3-8.2) g/dL Albumin 2.9 L (3.5-5.0) g/dL
--- NOTE | 2023-04-11 13:03 | XR ---
EXAMINATION TYPE: XR chest 1V DATE OF EXAM: 04/11/2023 COMPARISON: NONE HISTORY: Shortness of breath TECHNIQUE: Single frontal view of the chest is obtained. FINDINGS: There is no focal air space opacity, pleural effusion, or pneumothorax seen. The cardiac silhouette size is within normal limits. The osseous structures are intact. Postoperative change ri ght shoulder. Diffuse osteopenia. Limited inspiration. IMPRESSION: No acute process.
[2023-04-11] MEDS: REPAGLINIDE 1 MG TAB PO SCH (16:43)
[2023-04-11 16:47] LABS: Glucose,Whole Blood 223 mg/dL (70-110)
[2023-04-11 20:00] LABS: Glucose,Whole Blood 360 mg/dL (70-110)
[2023-04-11 20:10] LABS: Appearance,Urine Cloudy (Clear); Bacteria,Urine Rare /hpf; Bilirubin,Urine Negative (Negative); Blood,Urine Negative (Negative); Color,Urine Yellow; Glucose,Urine (UA) 2+ (Negative); Ketones,Urine Trace (Negative); Leukocyte Esterase,Urine Negative (Negative); Nitrite,Urine Negative (Negative); Protein,Urine Trace (Negative); RBC,Urine 1 /hpf (0-5); Specific Gravity,Urine 1.021 (1.001-1.035); Squamous Epithelial Cell,Urine 2 /hpf (0-4); Uric Acid Crystals,Urine Occasional /hpf; Urobilinogen,Urine <2.0 mg/dL (<2.0); WBC,Urine <1 /hpf (0-5)
[2023-04-11] MEDS: ATORVASTATIN 10 MG TAB PO SCH (20:39)
[2023-04-11] MEDS: INSULIN DETEMIR (LEVEMIR) 100 UNIT/ML SYR SQ SCH (20:39)
[2023-04-12] MEDS: MIDODRINE 5 MG TAB PO SCH ×3 (05:52→15:38)
[2023-04-12 06:14] LABS: Glucose,Whole Blood 134 mg/dL (70-110)
[2023-04-12] MEDS: AMPICILLIN-SULBACTAM 3 GM in SODIUM CHLORIDE 0.9% 100 ML IVPB SCH ×2 (08:59→22:30)
[2023-04-12] MEDS: CHOLECALCIFEROL 25 MCG (1000 IU) TABLET PO SCH (09:00)
[2023-04-12] MEDS: busPIRone HCl 10 MG TAB PO SCH ×3 (09:00→22:31)
[2023-04-12] MEDS: MULTIVITAMINS, THERA 1 EACH TAB PO SCH (09:00)
[2023-04-12] MEDS: ALPRAZolam 0.5 MG TAB PO SCH ×2 (09:00→22:31)
[2023-04-12] MEDS: ESCITALOPRAM 20 MG TAB PO SCH (09:00)
[2023-04-12 09:43] LABS: ALT 22 U/L (4-34); AST 30 U/L (14-36); African American GFR (CKD) 28 (>60 ml/min/1.73 sqM); Alkaline Phosphatase 95 U/L (38-126); Anion Gap 9 mmol/L; Blood Urea Nitrogen 76 mg/dL (7-17); Calcium 8.6 mg/dL (8.4-10.2); Carbon Dioxide 22 mmol/L (22-30); Chloride 113 mmol/L (98-107); Glucose 127 mg/dL (74-99); Magnesium 1.9 mg/dL (1.6-2.3); Non-African American GFR(CKD) 25 (>60 ml/min/1.73 sqM); Potassium 4.3 mmol/L (3.5-5.1); Sodium 144 mmol/L (137-145); Total Bilirubin 0.8 mg/dL (0.2-1.3)
--- NOTE | 2023-04-12 10:03 | P.PN ---
Subjective Patient is seen in follow-up for acute kidney injury. Renal function better. Sodium level 144. D5W discontinued last night. Oral intake is poor. Blood pressure better this morning. On midodrine. Vital signs are stable. General: No acute distress. HEENT: Head exam is unremarkable. LUNGS: No acute rhonchi or wheezes. HEART: Rate and Rhythm are regular. ABDOMEN: Nontender. EXTREMITITES: No edema. Objective - Vital Signs Vital signs: Vital Signs Temp 98.3 F 04/12/23 04:00 Pulse 66 04/12/23 08:52 Resp 17 04/12/23 08:52 BP 124/54 04/12/23 08:52 Pulse Ox 97 04/12/23 08:52 FiO2 Intake & Output 04/11/23 04/12/23 04/12/23 18:59 06:59 18:59 Intake Total 1125 440 10 Output Total 350 350 Balance 775 90 10 Weight 70 kg 71.5 kg Intake: IV 20 20 10 Invasive Line 1 20 20 10 Intake, IV Titration 300 Amount Dextrose 5% in Water 1, 300 000 ml @ 100 mls/hr IV . Q10H [facility] Rx#:[id number] Oral 1105 120 Output: Urine 350 350 Other: Voiding Method External Catheter External Catheter External Catheter # Voids 1 - Labs CBC & Chem 7: 04/11/23 07:40 04/12/23 08:04 Labs: Abnormal Lab Results - Last 24 Hours (Table) 04/11/23 04/11/23 04/11/23 Range/Units 11:30 16:45 19:20 Chloride (98-107) mmol/L BUN (7-17) mg/dL Creatinine (0.52-1.04) mg/dL Glucose (74-99) mg/dL POC Glucose (mg/dL) 165 H 223 H (70-110) mg/dL Total Protein (6.3-8.2) g/dL Albumin (3.5-5.0) g/dL Urine Appearance Cloudy H (Clear) Urine Protein Trace H (Negative) Urine Glucose (UA) 2+ H (Negative) Urine Ketones Trace H (Negative) Uric Acid Crystals Occasional H (None) /hpf Urine Bacteria Rare H (None) /hpf 04/11/23 04/12/23 04/12/23 Range/Units 19:54 06:01 08:04 Chloride 113 H (98-107) mmol/L BUN 76 H (7-17) mg/dL Creatinine 1.93 H (0.52-1.04) mg/dL Glucose 127 H (74-99) mg/dL POC Glucose (mg/dL) 360 H 134 H (70-110) mg/dL Total Protein 6.0 L (6.3-8.2) g/dL Albumin 3.0 L (3.5-5.0) g/dL Urine Appearance (Clear) Urine Protein (Negative) Urine Glucose (UA) (Negative) Urine Ketones (Negative) Uric Acid Crystals (None) /hpf Urine Bacteria (None) /hpf Assessment and Plan Plan: Assessment: 1. Acute kidney injury secondary to hemodynamic ATN, further worsened with the use of SOTO inhibitor. No hydronephrosis noted on kidney ultrasound. Right kidney atrophic. Creatinine improved to 1.93 today. Creatinine 0.8 in February 2022. UA fairly benign. 2. Hypernatremia from lack of oral water intake. Improved with D5W. 3. Metabolic acidosis secondary to acute kidney injury. Improved. 4. Acute on chronic diastolic CHF. 5. Diabetes mellitus. 6. History of dementia. Plan: Resume D5W at rate of 50 mL an hour. Encouraged oral intake, including free water. Avoid nephrotoxins. Continue to monitor renal function and urine output. Cortisol level not low. Maintain midodrine - hold for systolic blood pressure greater than 110.
[2023-04-12 10:30] LABS: Basophils # (A) 0.1 k/uL (0-0.2); Basophils % (A) 1 %; Eosinophils # (A) 0.4 k/uL (0-0.7); Eosinophils % (A) 6 %; HGB 12.8 gm/dL (11.4-16.0); Hypochromasia Slight; Lymphocytes # (A) 1.2 k/uL (1.0-4.8); Lymphocytes % (A) 19 %; MCH 30.5 pg (25.0-35.0); MCHC 31.3 g/dL (31.0-37.0); MCV 97.3 fL (80.0-100.0); Mean Platelet Volume 8.5; Monocytes # (A) 0.3 k/uL (0-1.0); Monocytes % (A) 5 %; Neutrophils # (A) 4.3 k/uL (1.3-7.7); Neutrophils % (A) 67 %; Platelet Count 256 k/uL (150-450); RBC 4.22 m/uL (3.80-5.40); RDW 13.4 % (11.5-15.5); WBC 6.4 k/uL (3.8-10.6)
[2023-04-12] MEDS: DEXTROSE 5% IN WATER 1,000 ML IV SCH (11:31)
[2023-04-12 12:13] LABS: Glucose,Whole Blood 159 mg/dL (70-110)
[2023-04-12] MEDS ORDERED: ACETAMINOPHEN TAB 325 MG TAB PO PRN (13:18)
--- NOTE | 2023-04-12 13:20 | P.PN ---
Subjective Progress Note Date: 04/12/23 patient is a 77-year-old lady with past medical history significant for dementia who presented to the hospital because of shortness of breath. There was concern that patient might aspirated. Patient was found coughing. There was no fever or chills at that time. Patient initial pulse ox was down in 70s. Because of his concerns for aspiration, patient was brought to the ER. Initial lab work done in the ER showed sodium 142, potassium 5.7, BUN 83, creatinine 2.62, troponin 0.012, WBC 16.7, hemoglobin 13.4, Chest x-ray done showed cardiomegaly and mild pulmonary venous congestion She was admitted to internal medicine service for further evaluation and treatment 04/10. Patient seen and examined. Vital signs this morning are temperature 98.6, heart rate 90, blood pressure 90/61, on 3 L of oxygen. Pressure is on the softer side 04/11. Patient seen and examined. Labs done this morning showed white count 9.3, hemoglobin 12.7, sodium 150, potassium 5, chloride 121, creatinine 2.57 04/12. Patient seen and examined. Blood work done this morning showed sodium 144, potassium 4.3, BUN 76, creatinine 1.93. Patient not a good historian, keeps stating that she needs a doctor. REVIEW OF SYSTEMS: Review of systems cannot be obtained because the patient history of dementia PHYSICAL EXAMINATION: GENERAL: The patient is alert to self, not in any acute distress. Well developed, well nourished. HEENT: Pupils are round and equally reacting to light. EOMI. No scleral icterus. No conjunctival pallor. Normocephalic, atraumatic. No pharyngeal erythema. No thyromegaly. CARDIOVASCULAR: S1 and S2 present. No murmurs, rubs, or gallops. PULMONARY: Chest is clear to auscultation, no wheezing or crackles. ABDOMEN: Soft, nontender, nondistended, normoactive bowel sounds. No palpable organomegaly. MUSCULOSKELETAL: No joint swelling or deformity. EXTREMITIES: No cyanosis, clubbing, or pedal edema. NEUROLOGICAL: Gross neurological examination did not reveal any focal deficits. SKIN: No rashes. Assessment and plan Acute diastolic CHF Acute hypoxic respiratory failure Aspiration pneumonia Hyperkalemia Hypernatremia Acute kidney injury Hypertension Insulin-dependent diabetes mellitus History of dementia Monitor vital signs Monitor CBC Monitor CMP, sodium elevated, encourage oral hydration Continue telemetry monitoring Results of ultrasound of the kidneys noted, no evidence of any obstruction. Hold nephrotoxic agent Continue midodrine, hold for systolic blood pressure more than 110 2-D echo showed LVEF of 55%, small left ventricular cavity, mild aortic stenosis, mild tricuspid regurg Continue IV Unasyn Continue D5W at 50 mL per hour Follow-up in nephrology recommendations Cardiology has signed off. They recommended medical management continuation of current medications, holding SOTO inhibitor for kidney injury Objective - Vital Signs Vital signs: Vital Signs Temp 98.3 F 04/12/23 04:00 Pulse 66 04/12/23 08:52 Resp 17 04/12/23 08:52 BP 124/54 04/12/23 08:52 Pulse Ox 97 04/12/23 08:52 FiO2 Intake & Output 04/11/23 04/12/23 04/12/23 18:59 06:59 18:59 Intake Total 1125 440 10 Output Total 350 350 Balance 775 90 10 Weight 70 kg 71.5 kg Intake: IV 20 20 10 Invasive Line 1 20 20 10 Intake, IV Titration 300 Amount Dextrose 5% in Water 1, 300 000 ml @ 100 mls/hr IV . Q10H [facility] Rx#:[id number] Oral 1105 120 Output: Urine 350 350 Other: Voiding Method External Catheter External Catheter External Catheter # Voids 1 - Labs CBC & Chem 7: 04/12/23 08:04 04/12/23 08:04 Labs: Abnormal Lab Results - Last 24 Hours (Table) 04/11/23 04/11/23 04/11/23 Range/Units 11:30 16:45 19:20 Chloride (98-107) mmol/L BUN (7-17) mg/dL Creatinine (0.52-1.04) mg/dL Glucose (74-99) mg/dL POC Glucose (mg/dL) 165 H 223 H (70-110) mg/dL Total Protein (6.3-8.2) g/dL Albumin (3.5-5.0) g/dL Urine Appearance Cloudy H (Clear) Urine Protein Trace H (Negative) Urine Glucose (UA) 2+ H (Negative) Urine Ketones Trace H (Negative) Uric Acid Crystals Occasional H (None) /hpf Urine Bacteria Rare H (None) /hpf 0604/12/23 04/12/23 Range/Units 19:54 06:01 08:04 Chloride 113 H (98-107) mmol/L BUN 76 H (7-17) mg/dL Creatinine 1.93 H (0.52-1.04) mg/dL Glucose 127 H (74-99) mg/dL POC Glucose (mg/dL) 360 H 134 H (70-110) mg/dL Total Protein 6.0 L (6.3-8.2) g/dL Albumin 3.0 L (3.5-5.0) g/dL Urine Appearance (Clear) Urine Protein (Negative) Urine Glucose (UA) (Negative) Urine Ketones (Negative) Uric Acid Crystals (None) /hpf Urine Bacteria (None) /hpf
[2023-04-12 16:47] LABS: Glucose,Whole Blood 136 mg/dL (70-110)
[2023-04-12] MEDS: REPAGLINIDE 1 MG TAB PO SCH (17:01)
[2023-04-12 20:18] LABS: Glucose,Whole Blood 173 mg/dL (70-110)
[2023-04-12] MEDS: ATORVASTATIN 10 MG TAB PO SCH (22:31)
[2023-04-12] MEDS: INSULIN DETEMIR (LEVEMIR) 100 UNIT/ML SYR SQ SCH (22:31)
[2023-04-13 06:04] LABS: Glucose,Whole Blood 162 mg/dL (70-110)
[2023-04-13] MEDS: AMPICILLIN-SULBACTAM 3 GM in SODIUM CHLORIDE 0.9% 100 ML IVPB SCH ×2 (08:15→20:36)
[2023-04-13 08:16] LABS: HCT 37.7 % (34.0-46.0); HGB 11.6 gm/dL (11.4-16.0); Hypochromasia Slight; MCH 29.6 pg (25.0-35.0); MCHC 30.7 g/dL (31.0-37.0); MCV 96.4 fL (80.0-100.0); Mean Platelet Volume 7.8; Platelet Count 249 k/uL (150-450); RBC 3.92 m/uL (3.80-5.40); RDW 13.4 % (11.5-15.5); WBC 7.6 k/uL (3.8-10.6)
[2023-04-13] MEDS: ALPRAZolam 0.5 MG TAB PO SCH ×2 (08:16→20:36)
[2023-04-13] MEDS: CHOLECALCIFEROL 25 MCG (1000 IU) TABLET PO SCH (08:16)
[2023-04-13] MEDS: MULTIVITAMINS, THERA 1 EACH TAB PO SCH (08:16)
[2023-04-13] MEDS: DEXTROSE 5% IN WATER 1,000 ML IV SCH (08:16)
[2023-04-13] MEDS: busPIRone HCl 10 MG TAB PO SCH ×4 (08:16→20:36)
[2023-04-13] MEDS: ESCITALOPRAM 20 MG TAB PO SCH (08:16)
[2023-04-13 08:54] LABS: ALT 22 U/L (4-34); AST 30 U/L (14-36); African American GFR (CKD) 43 (>60 ml/min/1.73 sqM); Albumin 2.8 g/dL (3.5-5.0); Alkaline Phosphatase 94 U/L (38-126); Anion Gap 7 mmol/L; Blood Urea Nitrogen 47 mg/dL (7-17); Calcium 8.3 mg/dL (8.4-10.2); Carbon Dioxide 23 mmol/L (22-30); Chloride 112 mmol/L (98-107); Glucose 197 mg/dL (74-99); Magnesium 1.7 mg/dL (1.6-2.3); Non-African American GFR(CKD) 37 (>60 ml/min/1.73 sqM); Potassium 3.8 mmol/L (3.5-5.1); Sodium 142 mmol/L (137-145); Total Bilirubin 0.6 mg/dL (0.2-1.3); Total Protein 5.6 g/dL (6.3-8.2)
[2023-04-13] MEDS: MIDODRINE 5 MG TAB PO SCH ×4 (09:34→18:01)
--- NOTE | 2023-04-13 10:33 | P.PN ---
Subjective Patient is seen in follow-up for acute kidney injury. Renal function better. Sodium level 142. Currently on D5W. Oral intake is poor. Blood pressure stable. On midodrine. Vital signs are stable. General: No acute distress. HEENT: Head exam is unremarkable. LUNGS: No acute rhonchi or wheezes. HEART: Rate and Rhythm are regular. ABDOMEN: Nontender. EXTREMITITES: No edema. Objective - Vital Signs Vital signs: Vital Signs Temp 98.6 F 04/13/23 08:00 Pulse 71 04/13/23 08:00 Resp 16 04/13/23 08:00 BP 112/62 04/13/23 08:00 Pulse Ox 98 04/13/23 08:05 FiO2 Intake & Output 04/12/23 04/13/23 04/13/23 18:59 06:59 18:59 Intake Total 260 20 10 Output Total 300 Balance -40 20 10 Intake: IV 20 20 10 Invasive Line 1 20 20 10 Oral 240 Output: Urine 300 Other: Voiding Method External Catheter External Catheter External Catheter # Voids 3 # Bowel Movements 1 - Labs CBC & Chem 7: 04/13/23 07:42 04/13/23 07:42 Labs: Abnormal Lab Results - Last 24 Hours (Table) 04/12/23 04/12/23 04/12/23 Range/Units 12:06 16:45 20:17 MCHC (31.0-37.0) g/dL Chloride (98-107) mmol/L BUN (7-17) mg/dL Creatinine (0.52-1.04) mg/dL Glucose (74-99) mg/dL POC Glucose (mg/dL) 159 H 136 H 173 H (70-110) mg/dL Calcium (8.4-10.2) mg/dL Total Protein (6.3-8.2) g/dL Albumin (3.5-5.0) g/dL 04/13/23 04/13/23 04/13/23 Range/Units 06:03 07:42 07:42 MCHC 30.7 L (31.0-37.0) g/dL Chloride 112 H (98-107) mmol/L BUN 47 H (7-17) mg/dL Creatinine 1.38 H (0.52-1.04) mg/dL Glucose 197 H (74-99) mg/dL POC Glucose (mg/dL) 162 H (70-110) mg/dL Calcium 8.3 L (8.4-10.2) mg/dL Total Protein 5.6 L (6.3-8.2) g/dL Albumin 2.8 L (3.5-5.0) g/dL Assessment and Plan Plan: Assessment: 1. Acute kidney injury secondary to hemodynamic ATN, further worsened with the use of SOTO inhibitor. No hydronephrosis noted on kidney ultrasound. Right kidney atrophic. Creatinine improved to 1.38 today. Creatinine 0.8 in February 2022. UA fairly benign. 2. Hypernatremia from lack of oral water intake. Improved with D5W. 3. Metabolic acidosis secondary to acute kidney injury. Improved. 4. Acute on chronic diastolic CHF. 5. Diabetes mellitus. 6. History of dementia. Plan: Maintain D5W for now. Encouraged oral intake, including free water. Avoid nephrotoxins. Continue to monitor renal function and urine output. Cortisol level not low. Maintain midodrine - hold for systolic blood pressure greater than 110.
[2023-04-13 13:08] VITALS: BMI 28.8
--- NOTE | 2023-04-13 13:10 | P.DS ---
Providers Date of admission: 04/09/23 02:30 Expected date of discharge: 04/13/23 Attending physician: Bozena Greenwood Consults: 04/09/23 02:25 Consult Physician Routine Consulting Provider: Otis Adan Consult Reason/Comments: CHF exacerbation Do you want consulting provider notified?: Yes 04/09/23 09:43 Consult Physician Routine Consulting Provider: Salena Hernández Consult Reason/Comments: Acute kidney injury Do you want consulting provider notified?: Yes Primary care physician: [facility] Course: Discharge diagnoses; Acute diastolic CHF Acute hypoxic respiratory failure Aspiration pneumonia Hyperkalemia Hypernatremia Acute kidney injury Hypertension Insulin-dependent diabetes mellitus History of dementia Hospital course; patient is a 77-year-old lady with past medical history significant for dementia who presented to the hospital because of shortness of breath. There was concern that patient might aspirated. Patient was found coughing. There was no fever or chills at that time. Patient initial pulse ox was down in 70s. Because of his concerns for aspiration, patient was brought to the ER. Initial lab work done in the ER showed sodium 142, potassium 5.7, BUN 83, creatinine 2.62, troponin 0.012, WBC 16.7, hemoglobin 13.4, Chest x-ray done showed cardiomegaly and mild pulmonary venous congestion She was admitted to internal medicine service for further evaluation and treatment 04/10. Patient seen and examined. Vital signs this morning are temperature 98.6, heart rate 90, blood pressure 90/61, on 3 L of oxygen. Pressure is on the softer side 04/11. Patient seen and examined. Labs done this morning showed white count 9.3, hemoglobin 12.7, sodium 150, potassium 5, chloride 121, creatinine 2.57 04/12. Patient seen and examined. Blood work done this morning showed sodium 144, potassium 4.3, BUN 76, creatinine 1.93. Patient not a good historian, keeps stating that she needs a doctor. 04/13. Patient seen and examined. Renal functions are improving. Being [facility] back to [facility] facility PHYSICAL EXAMINATION: GENERAL: The patient is alert to self, not in any acute distress. Well developed, well nourished. HEENT: Pupils are round and equally reacting to light. EOMI. No scleral icterus. No conjunctival pallor. Normocephalic, atraumatic. No pharyngeal erythema. No thyromegaly. CARDIOVASCULAR: S1 and S2 present. No murmurs, rubs, or gallops. PULMONARY: Chest is clear to auscultation, no wheezing or crackles. ABDOMEN: Soft, nontender, nondistended, normoactive bowel sounds. No palpable organomegaly. MUSCULOSKELETAL: No joint swelling or deformity. EXTREMITIES: No cyanosis, clubbing, or pedal edema. NEUROLOGICAL: Gross neurological examination did not reveal any focal deficits. SKIN: No rashes. Patient Condition at Discharge: Stable Plan - Discharge Summary Discharge Rx Participant: No New Discharge Prescriptions: New ALPRAZolam [Xanax] 0.5 mg PO BID@0800,2200 #6 tab Midodrine [ProAmatine] 10 mg PO AC-TID #30 tab Continue Ipratropium-Albuterol Nebulize [Duoneb 0.5 mg-3 mg/3 ml Soln] 3 ml INHALATION RT-Q6H PRN PRN Reason: Shortness Of Breath Or Wheezing polyethylene glycoL 3350 [Miralax] 17 gm PO DAILY PRN PRN Reason: Constipation Amoxic-Pot Clav 500-125 mg [Augmentin 500-125 mg] 1 tab PO TID@0700,1100,1800 Healthshake 1 dose PO BID Atorvastatin [Lipitor] 10 mg PO HS Insulin Glargine [Lantus Vial] 8 unit SQ HS Acetaminophen Tab [Tylenol] 1,000 mg PO Q4H PRN PRN Reason: Pain Sennosides [Senokot] 17.2 mg PO Q12H PRN PRN Reason: Constipation busPIRone HCl [Buspar] 20 mg PO TID@0800,1200,1800 Repaglinide [Prandin] 0.5 mg PO AC-SUPPER Multivitamins, Thera [Multivitamin (formulary)] 1 tab PO DAILY metFORMIN HCL [Glucophage] 1,000 mg PO HS metFORMIN HCL [Glucophage] 500 mg PO DAILY Escitalopram [Lexapro] 20 mg PO DAILY Cholecalciferol [Vitamin D3 (25 Mcg = 1000 Iu)] 50 mcg PO DAILY Discontinued ALPRAZolam [Xanax] 0.5 mg PO BID@0800,2200 Benazepril [Lotensin] 10 mg PO DAILY@0800 Discharge Medication List Acetaminophen Tab [Tylenol] 1,000 mg PO Q4H PRN 04/08/23 [History] Amoxic-Pot Clav 500-125 mg [Augmentin 500-125 mg] 1 tab PO TID@0700,1100,1800 04/08/23 [History] Atorvastatin [Lipitor] 10 mg PO HS 04/08/23 [History] Cholecalciferol [Vitamin D3 (25 Mcg = 1000 Iu)] 50 mcg PO DAILY 04/08/23 [History] Escitalopram [Lexapro] 20 mg PO DAILY 04/08/23 [History] Healthshake 1 dose PO BID 04/08/23 [History] Insulin Glargine [Lantus Vial] 8 unit SQ HS 04/08/23 [History] Ipratropium-Albuterol Nebulize [Duoneb 0.5 mg-3 mg/3 ml Soln] 3 ml INHALATION RT-Q6H PRN 04/08/23 [History] Multivitamins, Thera [Multivitamin (formulary)] 1 tab PO DAILY 04/08/23 [History] Repaglinide [Prandin] 0.5 mg PO AC-SUPPER 04/08/23 [History] Sennosides [Senokot] 17.2 mg PO Q12H PRN 04/08/23 [History] busPIRone HCl [Buspar] 20 mg PO TID@0800,1200,1800 04/08/23 [History] metFORMIN HCL [Glucophage] 1,000 mg PO HS 04/08/23 [History] metFORMIN HCL [Glucophage] 500 mg PO DAILY 04/08/23 [History] polyethylene glycoL 3350 [Miralax] 17 gm PO DAILY PRN 04/08/23 [History] ALPRAZolam [Xanax] 0.5 mg PO BID@0800,2200 #6 tab 04/13/23 [Rx] Midodrine [ProAmatine] 10 mg PO AC-TID #30 tab 04/13/23 [Rx] Follow up Appointment(s)/Referral(s): None,Stated [REFERRING] - 1-2 days Discharge Disposition: TRANSFER TO SNF/F
[2023-04-13 16:52] LABS: Glucose,Whole Blood 133 mg/dL (70-110)
[2023-04-13 17:22] LABS: Basophils % (A) 0 %; Eosinophils # (A) 0.2 k/uL (0-0.7); Eosinophils % (A) 4 %; HGB 11.6 gm/dL (11.4-16.0); Lymphocytes # (A) 1.8 k/uL (1.0-4.8); Lymphocytes % (A) 29 %; MCH 30.3 pg (25.0-35.0); MCHC 32.3 g/dL (31.0-37.0); MCV 93.7 fL (80.0-100.0); Monocytes # (A) 0.3 k/uL (0-1.0); Monocytes % (A) 5 %; Neutrophils # (A) 3.9 k/uL (1.3-7.7); Neutrophils % (A) 61 %; Platelet Count 241 k/uL (150-450); RBC 3.84 m/uL (3.80-5.40); RDW 13.6 % (11.5-15.5); WBC 6.3 k/uL (3.8-10.6)
[2023-04-13 17:31] LABS: African American GFR (CKD) 48 (>60 ml/min/1.73 sqM); Anion Gap 7 mmol/L; Blood Urea Nitrogen 41 mg/dL (7-17); Calcium 8.3 mg/dL (8.4-10.2); Carbon Dioxide 23 mmol/L (22-30); Chloride 112 mmol/L (98-107); Glucose 128 mg/dL (74-99); Non-African American GFR(CKD) 42 (>60 ml/min/1.73 sqM); Potassium 3.9 mmol/L (3.5-5.1); Sodium 142 mmol/L (137-145)
[2023-04-13] MEDS: REPAGLINIDE 1 MG TAB PO SCH ×2 (17:57→18:02)
[2023-04-13 20:16] LABS: Glucose,Whole Blood 122 mg/dL (70-110)
[2023-04-13] MEDS: ATORVASTATIN 10 MG TAB PO SCH (20:36)
[2023-04-13] MEDS: INSULIN DETEMIR (LEVEMIR) 100 UNIT/ML SYR SQ SCH (20:36)
[2023-04-14] MEDS: DEXTROSE 5% IN WATER 1,000 ML IV SCH (03:02)
[2023-04-14 06:07] LABS: Glucose,Whole Blood 134 mg/dL (70-110)
[2023-04-14] MEDS: MIDODRINE 5 MG TAB PO SCH ×2 (06:18→12:12)
[2023-04-14 08:59] LABS: African American GFR (CKD) 48 (>60 ml/min/1.73 sqM); Anion Gap 7 mmol/L; Blood Urea Nitrogen 34 mg/dL (7-17); Calcium 8.3 mg/dL (8.4-10.2); Carbon Dioxide 22 mmol/L (22-30); Chloride 114 mmol/L (98-107); Glucose 126 mg/dL (74-99); Magnesium 1.7 mg/dL (1.6-2.3); Non-African American GFR(CKD) 42 (>60 ml/min/1.73 sqM); Potassium 3.7 mmol/L (3.5-5.1); Sodium 143 mmol/L (137-145)
[2023-04-14 09:06] VITALS: RESP 18; TEMP 97.4
[2023-04-14] MEDS: AMPICILLIN-SULBACTAM 3 GM in SODIUM CHLORIDE 0.9% 100 ML IVPB SCH (09:06)
[2023-04-14] MEDS: MULTIVITAMINS, THERA 1 EACH TAB PO SCH (09:09)
[2023-04-14] MEDS: ALPRAZolam 0.5 MG TAB PO SCH (09:09)
[2023-04-14] MEDS: CHOLECALCIFEROL 25 MCG (1000 IU) TABLET PO SCH (09:09)
[2023-04-14] MEDS: busPIRone HCl 10 MG TAB PO SCH (09:09)
[2023-04-14] MEDS: ESCITALOPRAM 20 MG TAB PO SCH (09:09)
[2023-04-14 11:19] LABS: Glucose,Whole Blood 123 mg/dL (70-110)
[2023-04-14 12:10] VITALS: BP 96/67; PULSE 57
[2023-04-14 12:48] LABS: HCT 36.8 % (34.0-46.0); HGB 11.9 gm/dL (11.4-16.0); Hypochromasia Slight; MCH 31.2 pg (25.0-35.0); MCHC 32.3 g/dL (31.0-37.0); MCV 96.5 fL (80.0-100.0); Mean Platelet Volume 7.5; Platelet Count 273 k/uL (150-450); RBC 3.81 m/uL (3.80-5.40); RDW 13.3 % (11.5-15.5); WBC 10.1 k/uL (3.8-10.6)
--- NOTE | 2023-04-14 13:50 | P.DS ---
Providers Date of admission: 04/09/23 02:30 Expected date of discharge: 04/14/23 Attending physician: Bozena Greenwood Consults: 04/09/23 02:25 Consult Physician Routine Consulting Provider: Otis Adan Consult Reason/Comments: CHF exacerbation Do you want consulting provider notified?: Yes 04/09/23 09:43 Consult Physician Routine Consulting Provider: Salena Hernández Consult Reason/Comments: Acute kidney injury Do you want consulting provider notified?: Yes Primary care physician: [facility] Hospital Course: Discharge diagnoses; Acute diastolic CHF Acute hypoxic respiratory failure Aspiration pneumonia Hyperkalemia Hypernatremia Acute kidney injury Hypertension Insulin-dependent diabetes mellitus History of dementia Hospital course; patient is a 77-year-old lady with past medical history significant for dementia who presented to the hospital because of shortness of breath. There was concern that patient might aspirated. Patient was found coughing. There was no fever or chills at that time. Patient initial pulse ox was down in 70s. Because of his concerns for aspiration, patient was brought to the ER. Initial lab work done in the ER showed sodium 142, potassium 5.7, BUN 83, creatinine 2.62, troponin 0.012, WBC 16.7, hemoglobin 13.4, Chest x-ray done showed cardiomegaly and mild pulmonary venous congestion She was admitted to internal medicine service for further evaluation and treatment 04/10. Patient seen and examined. Vital signs this morning are temperature 98.6, heart rate 90, blood pressure 90/61, on 3 L of oxygen. Pressure is on the softer side 04/11. Patient seen and examined. Labs done this morning showed white count 9.3, hemoglobin 12.7, sodium 150, potassium 5, chloride 121, creatinine 2.57 04/12. Patient seen and examined. Blood work done this morning showed sodium 144, potassium 4.3, BUN 76, creatinine 1.93. Patient not a good historian, keeps stating that she needs a doctor. 04/13. Patient seen and examined. Renal functions are improving. Being discharged back to detention facility 04/14. Patient was kept overnight as patient had one episode of dark stools. Hemoglobin continued to remain stable. Discharge patient today back to detention facility PHYSICAL EXAMINATION: GENERAL: The patient is alert to self, not in any acute distress. Well developed, well nourished. HEENT: Pupils are round and equally reacting to light. EOMI. No scleral icterus. No conjunctival pallor. Normocephalic, atraumatic. No pharyngeal erythema. No thyromegaly. CARDIOVASCULAR: S1 and S2 present. No murmurs, rubs, or gallops. PULMONARY: Chest is clear to auscultation, no wheezing or crackles. ABDOMEN: Soft, nontender, nondistended, normoactive bowel sounds. No palpable organomegaly. MUSCULOSKELETAL: No joint swelling or deformity. EXTREMITIES: No cyanosis, clubbing, or pedal edema. NEUROLOGICAL: Gross neurological examination did not reveal any focal deficits. SKIN: No rashes. Patient Condition at Discharge: Stable Plan - Discharge Summary Discharge Rx Participant: No New Discharge Prescriptions: New ALPRAZolam [Xanax] 0.5 mg PO BID@0800,2200 #6 tab Midodrine [ProAmatine] 10 mg PO AC-TID #30 tab Continue Ipratropium-Albuterol Nebulize [Duoneb 0.5 mg-3 mg/3 ml Soln] 3 ml INHALATION RT-Q6H PRN PRN Reason: Shortness Of Breath Or Wheezing polyethylene glycoL 3350 [Miralax] 17 gm PO DAILY PRN PRN Reason: Constipation Healthshake 1 dose PO BID Atorvastatin [Lipitor] 10 mg PO HS Insulin Glargine [Lantus Vial] 8 unit SQ HS Acetaminophen Tab [Tylenol] 1,000 mg PO Q4H PRN PRN Reason: Pain Sennosides [Senokot] 17.2 mg PO Q12H PRN PRN Reason: Constipation busPIRone HCl [Buspar] 20 mg PO TID@0800,1200,1800 Repaglinide [Prandin] 0.5 mg PO AC-SUPPER Multivitamins, Thera [Multivitamin (formulary)] 1 tab PO DAILY metFORMIN HCL [Glucophage] 1,000 mg PO HS metFORMIN HCL [Glucophage] 500 mg PO DAILY Escitalopram [Lexapro] 20 mg PO DAILY Cholecalciferol [Vitamin D3 (25 Mcg = 1000 Iu)] 50 mcg PO DAILY Discontinued Amoxic-Pot Clav 500-125 mg [Augmentin 500-125 mg] 1 tab PO TID@0700,1100,1800 ALPRAZolam [Xanax] 0.5 mg PO BID@0800,2200 Benazepril [Lotensin] 10 mg PO DAILY@0800 Discharge Medication List Acetaminophen Tab [Tylenol] 1,000 mg PO Q4H PRN 04/08/23 [History] Atorvastatin [Lipitor] 10 mg PO HS 04/08/23 [History] Cholecalciferol [Vitamin D3 (25 Mcg = 1000 Iu)] 50 mcg PO DAILY 04/08/23 [History] Escitalopram [Lexapro] 20 mg PO DAILY 04/08/23 [History] Healthshake 1 dose PO BID 04/08/23 [History] Insulin Glargine [Lantus Vial] 8 unit SQ HS 04/08/23 [History] Ipratropium-Albuterol Nebulize [Duoneb 0.5 mg-3 mg/3 ml Soln] 3 ml INHALATION RT-Q6H PRN 04/08/23 [History] Multivitamins, Thera [Multivitamin (formulary)] 1 tab PO DAILY 04/08/23 [History] Repaglinide [Prandin] 0.5 mg PO AC-SUPPER 04/08/23 [History] Sennosides [Senokot] 17.2 mg PO Q12H PRN 04/08/23 [History] busPIRone HCl [Buspar] 20 mg PO TID@0800,1200,1800 04/08/23 [History] metFORMIN HCL [Glucophage] 1,000 mg PO HS 04/08/23 [History] metFORMIN HCL [Glucophage] 500 mg PO DAILY 04/08/23 [History] polyethylene glycoL 3350 [Miralax] 17 gm PO DAILY PRN 04/08/23 [History] ALPRAZolam [Xanax] 0.5 mg PO BID@0800,2200 #6 tab 04/13/23 [Rx] Midodrine [ProAmatine] 10 mg PO AC-TID #30 tab 04/13/23 [Rx] Follow up Appointment(s)/Referral(s): None,Stated [REFERRING] - 1-2 days Discharge Disposition: TRANSFER TO SNF/ECF
--- NOTE | 2023-04-14 13:50 | P.PN ---
Subjective Progress Note Date: 04/14/23 patient is a 77-year-old lady with past medical history significant for dementia who presented to the hospital because of shortness of breath. There was concern that patient might aspirated. Patient was found coughing. There was no fever or chills at that time. Patient initial pulse ox was down in 70s. Because of his concerns for aspiration, patient was brought to the ER. Initial lab work done in the ER showed sodium 142, potassium 5.7, BUN 83, creatinine 2.62, troponin 0.012, WBC 16.7, hemoglobin 13.4, Chest x-ray done showed cardiomegaly and mild pulmonary venous congestion She was admitted to internal medicine service for further evaluation and treatment 04/10. Patient seen and examined. Vital signs this morning are temperature 98.6, heart rate 90, blood pressure 90/61, on 3 L of oxygen. Pressure is on the softer side 04/11. Patient seen and examined. Labs done this morning showed white count 9.3, hemoglobin 12.7, sodium 150, potassium 5, chloride 121, creatinine 2.57 04/12. Patient seen and examined. Blood work done this morning showed sodium 144, potassium 4.3, BUN 76, creatinine 1.93. Patient not a good historian, keeps stating that she needs a doctor. 04/13. Patient seen and examined. Renal functions are improving 04/14. Patient seen and examined. Patient was supposed to be discharged yesterday, had one episode of dark stools, hemoglobin was checked, it continued to be remained stable. No further episodes of dark stools. We will discharge patient to rehab REVIEW OF SYSTEMS: Review of systems cannot be obtained because the patient history of dementia PHYSICAL EXAMINATION: GENERAL: The patient is alert to self, not in any acute distress. Well developed, well nourished. HEENT: Pupils are round and equally reacting to light. EOMI. No scleral icterus. No conjunctival pallor. Normocephalic, atraumatic. No pharyngeal erythema. No thyromegaly. CARDIOVASCULAR: S1 and S2 present. No murmurs, rubs, or gallops. PULMONARY: Chest is clear to auscultation, no wheezing or crackles. ABDOMEN: Soft, nontender, nondistended, normoactive bowel sounds. No palpable organomegaly. MUSCULOSKELETAL: No joint swelling or deformity. EXTREMITIES: No cyanosis, clubbing, or pedal edema. NEUROLOGICAL: Gross neurological examination did not reveal any focal deficits. SKIN: No rashes. Assessment and plan Acute diastolic CHF Acute hypoxic respiratory failure Aspiration pneumonia Hyperkalemia Hypernatremia Acute kidney injury Hypertension Insulin-dependent diabetes mellitus History of dementia Monitor vital signs Monitor CBC Monitor CMP, sodium elevated, encourage oral hydration Continue telemetry monitoring Results of ultrasound of the kidneys noted, no evidence of any obstruction. Continue midodrine, hold for systolic blood pressure more than 110 2-D echo showed LVEF of 55%, small left ventricular cavity, mild aortic stenosis, mild tricuspid regurg Cardiology has signed off. They recommended medical management continuation of current medications, holding SOTO inhibitor for kidney injury Being Discharge to rehab Objective - Vital Signs Vital signs: Vital Signs Temp 97.4 F L 04/14/23 09:02 Pulse 57 L 04/14/23 12:09 Resp 18 04/14/23 12:09 BP 96/67 04/14/23 12:09 Pulse Ox 97 04/14/23 12:09 FiO2 21 04/14/23 09:07 Intake & Output 04/13/23 04/14/23 04/14/23 18:59 06:59 18:59 Intake Total 10 700 0 Output Total 350 Balance 10 350 0 Weight 71.5 kg 71.5 kg Intake: IV 10 Invasive Line 1 10 Intake, IV Titration 700 Amount Ampicillin-Sulbactam 3 gm 100 In Sodium Chloride 0.9% 100 ml @ 200 mls/hr IVPB Q12HR [facility] Rx#:[id number] Dextrose 5% in Water 1, 600 000 ml @ 50 mls/hr IV . Q20H [facility] Rx#:[id number] Oral 0 Output: Urine 350 Other: Voiding Method External Catheter External Catheter External Catheter # Bowel Movements 1 - Labs CBC & Chem 7: 04/14/23 12:37 04/14/23 07:49 Labs: Abnormal Lab Results - Last 24 Hours (Table) 04/13/23 04/13/23 04/13/23 Range/Units 16:47 16:50 20:14 Chloride 112 H (98-107) mmol/L BUN 41 H (7-17) mg/dL Creatinine 1.24 H (0.52-1.04) mg/dL Glucose 128 H (74-99) mg/dL POC Glucose (mg/dL) 133 H 122 H (70-110) mg/dL Calcium 8.3 L (8.4-10.2) mg/dL Stool Occult Blood (Negative) 04/14/23 04/14/23 04/14/23 Range/Units 04:40 06:05 07:49 Chloride 114 H (98-107) mmol/L BUN 34 H (7-17) mg/dL Creatinine 1.25 H (0.52-1.04) mg/dL Glucose 126 H (74-99) mg/dL POC Glucose (mg/dL) 134 H (70-110) mg/dL Calcium 8.3 L (8.4-10.2) mg/dL Stool Occult Blood Positive H (Negative) 04/14/23 Range/Units 11:16 Chloride (98-107) mmol/L BUN (7-17) mg/dL Creatinine (0.52-1.04) mg/dL Glucose (74-99) mg/dL POC Glucose (mg/dL) 123 H (70-110) mg/dL Calcium (8.4-10.2) mg/dL Stool Occult Blood (Negative)
--- NOTE | 2023-04-14 15:33 | P.PN ---
Subjective Progress Note Date: 04/14/23 Follow-up for acute kidney injury. Objective - Vital Signs Vital signs: Vital Signs Temp 97.4 F L 04/14/23 09:02 Pulse 57 L 04/14/23 13:58 Resp 18 04/14/23 13:58 BP 96/67 04/14/23 12:09 Pulse Ox 97 04/14/23 12:09 FiO2 21 04/14/23 09:07 Intake & Output 04/13/23 04/14/23 04/14/23 18:59 06:59 18:59 Intake Total 10 700 0 Output Total 350 Balance 10 350 0 Weight 71.5 kg 71.5 kg Intake: IV 10 Invasive Line 1 10 Intake, IV Titration 700 Amount Ampicillin-Sulbactam 3 gm 100 In Sodium Chloride 0.9% 100 ml @ 200 mls/hr IVPB Q12HR [facility] Rx#:[id number] Dextrose 5% in Water 1, 600 000 ml @ 50 mls/hr IV . Q20H [facility] Rx#:[id number] Oral 0 Output: Urine 350 Other: Voiding Method External Catheter External Catheter External Catheter # Bowel Movements 1 1 - Exam No acute distress S1-S2 heard Decreased breath sounds No edema - Labs CBC & Chem 7: 04/14/23 12:37 04/14/23 07:49 Labs: Abnormal Lab Results - Last 24 Hours (Table) 04/13/23 04/13/23 04/13/23 Range/Units 16:47 16:50 20:14 Chloride 112 H (98-107) mmol/L BUN 41 H (7-17) mg/dL Creatinine 1.24 H (0.52-1.04) mg/dL Glucose 128 H (74-99) mg/dL POC Glucose (mg/dL) 133 H 122 H (70-110) mg/dL Calcium 8.3 L (8.4-10.2) mg/dL Stool Occult Blood (Negative) 04/14/23 04/14/23 04/14/23 Range/Units 04:40 06:05 07:49 Chloride 114 H (98-107) mmol/L BUN 34 H (7-17) mg/dL Creatinine 1.25 H (0.52-1.04) mg/dL Glucose 126 H (74-99) mg/dL POC Glucose (mg/dL) 134 H (70-110) mg/dL Calcium 8.3 L (8.4-10.2) mg/dL Stool Occult Blood Positive H (Negative) 04/14/23 Range/Units 11:16 Chloride (98-107) mmol/L BUN (7-17) mg/dL Creatinine (0.52-1.04) mg/dL Glucose (74-99) mg/dL POC Glucose (mg/dL) 123 H (70-110) mg/dL Calcium (8.4-10.2) mg/dL Stool Occult Blood (Negative) Assessment and Plan Assessment: #1 acute kidney injury secondary to hemodynamic ATN. 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 -Baseline creatinine 0.8 MG per DL. #3 hypovolemic hyponatremia. Improved. #4 diastolic CHF #5 memory disorder Plan: #1 renal function improving close to baseline. #2 encourage by mouth intake. Monitor off IV fluids. #3 daily labs #4 stable from nephrology for discharge.
== END 2023-04-14 15:44 | DRG 177 ==
LOC: EEVIPCON 18:11 → EC 18:11 → 3SCARD 04-09 02:30
PROVIDERS: ADMIT Hospitalist; ATTEND Hospitalist
DX: J69.0 Pneumonitis due to inhalation of food and vomit (principal); G93.41 Metabolic encephalopathy; I50.33 Acute on chronic diastolic (congestive) heart failure; J96.01 Acute respiratory failure with hypoxia; N17.0 Acute kidney failure with tubular necrosis; I13.0 Hypertensive heart and chronic kidney disease with heart failure and stage 1 through stage 4 chronic kidney disease, or unspecified chronic kidney disease; E87.0 Hyperosmolality and hypernatremia; F03.94 Unspecified dementia, unspecified severity, with anxiety; F41.1 Generalized anxiety disorder; E11.22 Type 2 diabetes mellitus with diabetic chronic kidney disease; E78.5 Hyperlipidemia, unspecified; E86.1 Hypovolemia; E87.5 Hyperkalemia; N18.31 Chronic kidney disease, stage 3a; Z79.4 Long term (current) use of insulin; Z79.84 Long term (current) use of oral hypoglycemic drugs; Z79.899 Other long term (current) drug therapy
CPT/HCPCS: 36415; 71045; 71046; 76770; 80048; 80053; 81001; 82272; 82533; 83605; 83735; 83880; 84295; 84484; 85025; 85027; 85610; 85730; 93005; 93306; 94760; 96374; 96376; 99285